=== PATIENT | female | born 1955 | race Caucasian/White ===

== ENCOUNTER 2017-11-25 12:09 | Inpatient (IN) | payer OTHER ==
[~2017-11-25] VITALS: Ht 157.5 cm; Wt 89.8 kg
[2017-11-25] MEDS ORDERED: CITALOPRAM HBR20 MG PO (13:28)
[2017-11-25] MEDS ORDERED: LIPITOR20 MG (13:28)
[2017-11-25] MEDS ORDERED: NORVASC5 MG PO (13:28)
[2017-11-25] MEDS ORDERED: GLIMEPIRIDE2 MG PO (13:29)
[2017-11-25] MEDS ORDERED: METFORMIN HCL850 MG PO (13:30)
[2017-11-25] MEDS ORDERED: VASOTEC10 M1 PO (13:31)
[2017-11-25] MEDS ORDERED: CLONIDINE HCL0.1 MG PO (13:32)
[2017-11-25] MEDS ORDERED: TOPROL XL50 MG PO (13:33)
[2017-11-25] MEDS ORDERED: ACARBOSE25 MG (13:33)
[2017-11-25] MEDS ORDERED: ZYRTEC10 M3 PO (13:34)
[2017-11-25] MEDS ORDERED: ASPIR 8181 MG PO (13:34)
[2017-11-25] MEDS ORDERED: PIPER-TAZ 3.375 GM 50 ML IV ONE (13:45)
[2017-11-25] MEDS ORDERED: VANCOMYCIN HCL 1 GM in SODIUM CHLORIDE 0.9% 250ML 250 ML IV SCH (13:45)
[2017-11-25] MEDS ORDERED: CEFTRIAXONE SOD 1 GM VIAL IM ONE (14:45)
[2017-11-25] MEDS ORDERED: ONDANSETRON HCL INJ 2 MG/ML VIAL IV PRN (15:15)
[2017-11-25] MEDS ORDERED: CEFEPIME HCL 2 GM VIAL IV SCH (15:15)
[2017-11-25] MEDS ORDERED: SODIUM CHLORIDE FLUSH 10 ML SYR INJ PRN (15:15)
--- OUTSIDE RECORDS SUMMARY | 2017-11-25 17:07 | XMS REPORT | Continuity of Care Document ---
Author Author [facility] Organization [facility] Address [address] [place] [address] Phone Unavailable Care Team Providers Care Corpsman Name Role Phone PAYAL TAYLOR MD PCP Insurance Providers Guarantor Aide Reid Address [address] [place] [address] Email [email or web address] Payer Miscellaneous Ppo Policy Number [id number] Subscriber's Name Aide Reid Relationship 18 Self / Same As Patient Effective Date 16 Advance Directives Directive Response Recorded Date/Time Does the patient have an advance directive? No 11/25/17 1:29pm If yes, is advance directive on file with [facility]? No 11/25/17 1:29pm If not on file with [facility] will patient provide a copy? No 11/25/17 1:29pm Do you have a Directive to Physician? No 11/25/17 1:29pm Do you have a Medical Power of Fluid Dynamicist? No 11/25/17 1:29pm Do you have an out of hospital Do Not Resuscitate Order? No 11/25/17 1:29pm Do you have any special needs we should be aware of? No 11/25/17 1:29pm Do you have a support person here with you today? Yes 11/25/17 1:29pm Did patient receive Notice of Privacy Practices? Yes 11/25/17 1:29pm Did patient receive patient rights and responsibilities? Yes 11/25/17 1:29pm Problems Medical Problem Onset Date Status Cellulitis Unknown Diabetes Unknown Medications Current Home Medications Medication Dose Units Route Directions Days Qty Instructions Start Date Acarbose 25 Mg Tablet Amlodipine Besylate (Norvasc) 5 Mg Tab 5 Mg Oral Daily 30 Tab Aspirin (Aspir 81) 81 Mg Tablet. Atorvastatin Calcium (Lipitor) 20 Mg Tablet 20 Mg Daily 30 Tab Cetirizine Hcl (Zyrtec) 10 Mg Capsule THERAPEUTICALLY SUBSTITUTED WITH LORATIDINE 10MG Citalopram Hydrobromide (Citalopram Hbr) 20 Mg Tablet 20 Mg Oral Daily Clonidine Hcl 0.1 Mg Tablet 1 Tab Oral Twice A Day 60 Tab Enalapril Maleate (Vasotec) 10 Mg Tablet Glimepiride 2 Mg Tablet 2 Mg Oral Metformin Hcl 850 Mg Tablet 800 Mg Oral Daily 30 Tab Metoprolol Succinate (Toprol Xl) 50 Mg Tab.er.24h 50 Mg Oral Daily 30 Tab Social History Smoking Status Start Date Stop Date Never Smoker Hospital Discharge Instructions No hospital discharge instruction information available. Plan of Care Discharge Date 11/25/17 4:51pm Disposition ADMITTED Condition at Discharge Stable Forms Provided Work/School Excuse Prescriptions See Medication Section Functional Status No functional status information available. Allergies, Adverse Reactions, Alerts No known allergies. Immunizations No immunization information available. Vital Signs Acute Vital Signs Vital Response Date/Time Temperature (Fahrenheit) 98.6 degrees F (97.6 - 99.5) 11/25/2017 4:48pm Pulse Pulse Rate (adult) 82 bpm (60 - 90) 11/25/2017 4:48pm Respiratory Rate 16 bpm (12 - 24) 11/25/2017 4:48pm Blood Pressure 141/65 mm Hg 11/25/2017 4:48pm Height 5 ft 2 in 11/25/2017 12:29pm Weight 197 lb 11/25/2017 12:29pm Body Mass Index 36.0 kg/m^2 11/25/2017 12:29pm Results No relevant diagnostic test, laboratory data and/or discharge summary information available. Procedures No procedure information available. Encounters Encounter Location Arrival/Admit Date Discharge/Depart Date Attending Provider Departed Emergency Room [facility] 11/25/17 12:09pm 11/25 4:51pm SHELLY SALCIDO MD
[2017-11-25 17:08] VITALS: BP 173/79
[2017-11-25] MEDS ORDERED: DEXTROSE 50% SYRINGE 50 ML IV PRN (17:30)
[2017-11-25] MEDS ORDERED: LORATADINE 10 MG TAB PO PRN (18:15)
[2017-11-25 18:18] VITALS: BP 173/79
[2017-11-25] MEDS ORDERED: PNEUMOCOCCAL VACCINE POLYVALENT 23 MCG/0.5 ML VIAL IM ONE (18:30)
[2017-11-25] MEDS: ENALAPRIL MALEATE 10 MG TAB PO SCH (18:48)
[2017-11-25] MEDS: CLONIDINE HCL 0.1 MG TAB PO SCH (18:48)
[2017-11-25 20:00] VITALS: BP 159/66
[2017-11-25 21:00] VITALS: BP 159/66
[2017-11-25] MEDS: CITALOPRAM HYDROBROMIDE 20 MG TAB PO SCH (21:24)
[2017-11-25] MEDS: ATORVASTATIN 20 MG TAB PO SCH (21:24)
[2017-11-25] MEDS: INSULIN LISPRO 100 UNIT/1 ML 3ML VIAL SQ SCH (21:29)
[2017-11-25] MEDS: HYDROCODONE/APAP 5MG-325MG TAB PO PRN (22:22)
[2017-11-26] VITALS: BP 163/79
[2017-11-26] MEDS ORDERED: VANCOMYCIN HCL 1 GM in SODIUM CHLORIDE 0.9% 250ML 250 ML IV SCH (01:54)
[2017-11-26] MEDS ORDERED: VANCOMYCIN 1GM/NS 250 ML 250 ML ONE (02:07)
[2017-11-26] MEDS: HYDROCODONE/APAP 5MG-325MG TAB PO PRN ×4 (02:28→20:30)
[2017-11-26 04:00] VITALS: BP 170/78
[2017-11-26 06:50] LABS: BASOPHILS % 0.2 % (0.0-1.0); EOSINOPHILS # (AUTO) 0.1 (0.0-0.4); EOSINOPHILS % 1.1 % (0.0-6.0); HEMATOCRIT 36.6 % (34.2-44.1); HEMOGLOBIN 11.9 g/dL (12.0-16.0); LYMPHOCYTES # (AUTO) 1.5 (1.0-3.2); LYMPHOCYTES % 18.6 % (18.0-39.1); MEAN CORPUSCULAR HEMOGLOBIN 28.6 pg (28-32); MEAN CORPUSCULAR HGB CONC 32.5 g/dL (31-35); MONOCYTES # (AUTO) 0.6 (0.2-0.8); MONOCYTES % 7.2 % (4.4-11.3); NEUTROPHILS # (AUTO) 5.9 (2.1-6.9); NEUTROPHILS % 72.5 % (38.7-80.0); PLATELET COUNT 193 x10e3/uL (140-360); RED BLOOD COUNT 4.16 x10e6/uL (3.6-5.1); RED CELL DISTRIBUTION WIDTH 13.7 % (11.7-14.4)
[2017-11-26 07:14] LABS: BLOOD UREA NITROGEN 8 mg/dL (7-26); BUN/CREATININE RATIO 12 (6-25); CALCIUM 9.8 mg/dL (8.4-10.2); CARBON DIOXIDE 26 mmol/L (22-29); CHLORIDE 100 mmol/L (98-107); CREATININE, SERUM 0.67 mg/dL (0.57-1.11); EST GLOMERULAR FILTRATION RATE > 60 ML/MIN (60-); GLUCOSE 95 mg/dL (74-118); SODIUM 135 mmol/L (136-145)
[2017-11-26 07:50] VITALS: BP 184/86
[2017-11-26 08:10] VITALS: BP 184/86
[2017-11-26] MEDS: ENALAPRIL MALEATE 10 MG TAB PO SCH ×2 (08:10→17:46)
[2017-11-26] MEDS: GLIMEPIRIDE 2 MG TAB PO SCH ×2 (08:10→17:46)
[2017-11-26] MEDS: ASPIRIN 81 MG CHEW TAB PO SCH (08:10)
[2017-11-26] MEDS: METOPROLOL SUCCINATE 50 MG TAB XL PO SCH (08:10)
[2017-11-26] MEDS: CEFEPIME HCL 2 GM VIAL IV SCH ×2 (08:10→09:00)
[2017-11-26] MEDS: AMLODIPINE BESYLATE 5 MG TAB PO SCH (08:10)
[2017-11-26] MEDS: INSULIN LISPRO 100 UNIT/1 ML 3ML VIAL SQ SCH ×4 (08:10→21:00)
[2017-11-26] MEDS: CLONIDINE HCL 0.1 MG TAB PO SCH ×2 (08:10→17:46)
[2017-11-26] MEDS ORDERED: CEFEPIME HCL 2 GM VIAL IV SCH (09:00)
[2017-11-26] MEDS ORDERED: ENALAPRIL MALEATE 10 MG TAB PO SCH (09:00)
[2017-11-26] MEDS ORDERED: CLONIDINE HCL 0.1 MG TAB PO SCH (09:00)
[2017-11-26] MEDS ORDERED: CLONIDINE HCL 0.1 MG TAB PO PRN (11:00)
--- NOTE | 2017-11-26 13:02 | History and Physical ---
CHIEF COMPLAINT: "I think my foot is infected." HISTORY OF PRESENT ILLNESS: This is a 61-year-old white woman who presents to [facility] Emergency Room with a 1-week history of worsening right foot redness and pain after a traumatic injury. Patient states she inadvertently pierced her right ankle with a screwdriver on November 17, 2017. Patient went to a local urgent care and was started on oral clindamycin and Bactrim, but unfortunately the medial aspect of her right foot only worsened in regards to pain, swelling, and redness. In the emergency room, patient was found to have a white blood cell count of 8100 with 72% segmented neutrophils. Patient underwent a CT of the right foot/ankle with intravenous contrast in the emergency room that revealed findings consistent with cellulitis, but no drainable abscess was identified. Patient was admitted for further evaluation and treatment. When patient initially presented to emergency room, her white blood cell count was 9700 with 80% segmented neutrophils. REVIEW OF SYSTEMS: GENERAL: No fever or chills. Weight is stable. HEENT: No headaches. No visual changes. CARDIOVASCULAR/RESPIRATORY: No chest pain, no shortness of breath, no cough. GI: No nausea or constipation. : No UTI or overactive bladder symptoms. NEUROMUSCULAR: Complains of worsening pain, redness, and swelling of the right ankle/foot over the last week. ALLERGIES: NO KNOWN DRUG ALLERGIES. HOME MEDICATIONS 1. Citalopram 20 mg daily. 2. Atorvastatin 10 mg q.h.s. 3. Amlodipine 10 mg a day. 4. Glimepiride 4 mg b.i.d. 5. Metformin 800 mg t.i.d. 6. Lisinopril 20 mg daily. 7. Clonidine 0.1 mg daily. 8. Metoprolol succinate 50 mg daily. 9. Aspirin 81 mg daily. 10. Zyrtec 10 mg once daily as needed for allergies. PAST MEDICAL HISTORY 1. Hypertensive heart disease. 2. Stage 1 chronic kidney disease with microalbuminuria. 3. Type 2 diabetes mellitus. 4. Obesity (calculated body mass 36). 5. Hyperlipidemia. 6. Depression. FAMILY HISTORY: Mother of lung cancer, who was a heavy smoker. No family history of diabetes mellitus or hypertension. PAST SURGICAL HISTORY 1. Total abdominal hysterectomy with bilateral salpingo-oophorectomy. 2. Gastroplasty in 1977. 3. Laparoscopic cholecystectomy. SOCIAL HISTORY: This woman is , lives with her . 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 No history of tobacco or alcohol use. PHYSICAL EXAMINATION: GENERAL: She is awake, alert, in no distress, very pleasant, comes in with her adult son, who is at bedside. VITAL SIGNS: Height 5 feet 2 inches, weight 198 pounds, calculated body mass 36. Blood pressure 184/86, pulse 88, respiratory rate 18, temperature 96.6, oxygen saturation is 97% on room air. INTEGUMENT: Skin is warm and dry. No pallor, jaundice, or diaphoresis. HEENT: Anicteric sclerae. Moist mucous membranes. NECK: Supple. CARDIOVASCULAR: Tachycardic rate and rhythm. LUNGS: No rales, no rhonchi, no wheezes. ABDOMEN: Benign. EXTREMITIES: Patient has a well demarcated area of erythema on medial aspect of the right foot near the medial malleolus. This area is erythematous, warm, and tender to touch, but the area seems to be receding. The patient notes less swelling in the dorsal aspect of right foot. DIAGNOSES 1. Right foot/ankle cellulitis. 2. Type 2 diabetes mellitus. 3. Stage 1 chronic kidney disease with microalbuminuria. 4. Hypertensive heart disease. 5. Obesity, calculated body mass 36. PLAN 1. Continue intravenous antibiotics. 2. Blood pressure control. 3. Blood glucose control. 4. We will follow patient's cellulitis clinically. 5. Tentative discharge for Tuesday, November 28, 2017. I spent 40 minutes in the care of this patient. Job#: [id number] RAYA
[2017-11-26] MEDS: VANCOMYCIN 1GM/NS 250 ML 250 ML IV SCH (14:43)
[2017-11-26 20:17] VITALS: BP 165/80
[2017-11-26] MEDS: CITALOPRAM HYDROBROMIDE 20 MG TAB PO SCH (20:59)
[2017-11-26] MEDS: ATORVASTATIN 20 MG TAB PO SCH (20:59)
[2017-11-26 22:00] VITALS: BP 165/80
[2017-11-27] VITALS (8 sets, daily range): BP systolic 151–194; BP diastolic 60–84
[2017-11-27] MEDS: VANCOMYCIN 1GM/NS 250 ML 250 ML IV SCH ×2 (03:03→15:47)
[2017-11-27] MEDS: HYDROCODONE/APAP 5MG-325MG TAB PO PRN ×3 (03:11→22:05)
[2017-11-27 06:19] LABS: BASOPHILS % 0.2 % (0.0-1.0); EOSINOPHILS # (AUTO) 0.1 (0.0-0.4); EOSINOPHILS % 1.7 % (0.0-6.0); HEMATOCRIT 39.3 % (34.2-44.1); LYMPHOCYTES # (AUTO) 1.5 (1.0-3.2); LYMPHOCYTES % 18.3 % (18.0-39.1); MEAN CORPUSCULAR HEMOGLOBIN 29.1 pg (28-32); MEAN CORPUSCULAR HGB CONC 33.1 g/dL (31-35); MEAN CORPUSCULAR VOLUME 87.9 fL (81-99); MONOCYTES # (AUTO) 0.5 (0.2-0.8); MONOCYTES % 5.8 % (4.4-11.3); NEUTROPHILS # (AUTO) 6.1 (2.1-6.9); NEUTROPHILS % 73.8 % (38.7-80.0); PLATELET COUNT 198 x10e3/uL (140-360); RED BLOOD COUNT 4.47 x10e6/uL (3.6-5.1); RED CELL DISTRIBUTION WIDTH 13.5 % (11.7-14.4)
[2017-11-27 06:40] LABS: ALANINE AMINOTRANSFERASE 23 IU/L (0-55); ALBUMIN 3.2 g/dL (3.5-5.0); ALBUMIN/GLOBULIN RATIO 0.8 (0.8-2.0); ALKALINE PHOSPHATASE 99 IU/L (40-150); ANION GAP 13.9 mmol/L (8-16); BLOOD UREA NITROGEN 9 mg/dL (7-26); BUN/CREATININE RATIO 13 (6-25); CALCIUM 9.6 mg/dL (8.4-10.2); CARBON DIOXIDE 26 mmol/L (22-29); CHLORIDE 102 mmol/L (98-107); CREATININE, SERUM 0.67 mg/dL (0.57-1.11); EST GLOMERULAR FILTRATION RATE > 60 ML/MIN (60-); GLUCOSE 131 mg/dL (74-118); POTASSIUM 3.9 mmol/L (3.5-5.1); SODIUM 138 mmol/L (136-145)
[2017-11-27] MEDS: CLONIDINE HCL 0.1 MG TAB PO SCH ×2 (08:12→17:07)
[2017-11-27] MEDS: INSULIN LISPRO 100 UNIT/1 ML 3ML VIAL SQ SCH ×4 (08:12→20:55)
[2017-11-27] MEDS: METOPROLOL SUCCINATE 50 MG TAB XL PO SCH (08:12)
[2017-11-27] MEDS: CEFEPIME HCL 2 GM VIAL IV SCH ×2 (08:12→20:54)
[2017-11-27] MEDS: ENALAPRIL MALEATE 10 MG TAB PO SCH ×2 (08:12→17:07)
[2017-11-27] MEDS: ASPIRIN 81 MG CHEW TAB PO SCH (08:12)
[2017-11-27] MEDS: AMLODIPINE BESYLATE 5 MG TAB PO SCH (08:12)
[2017-11-27] MEDS: GLIMEPIRIDE 2 MG TAB PO SCH ×2 (08:12→17:07)
[2017-11-27] MEDS: ATORVASTATIN 20 MG TAB PO SCH (20:54)
[2017-11-27] MEDS: CITALOPRAM HYDROBROMIDE 20 MG TAB PO SCH (20:54)
[2017-11-28 00:05] VITALS: BP 159/75
[2017-11-28] MEDS: VANCOMYCIN 1GM/NS 250 ML 250 ML IV SCH (02:29)
[2017-11-28 05:43] VITALS: BP 180/80
[2017-11-28 06:43] LABS: BASOPHILS % 0.4 % (0.0-1.0); EOSINOPHILS # (AUTO) 0.2 (0.0-0.4); EOSINOPHILS % 2.1 % (0.0-6.0); HEMATOCRIT 39.4 % (34.2-44.1); HEMOGLOBIN 12.9 g/dL (12.0-16.0); LYMPHOCYTES # (AUTO) 1.6 (1.0-3.2); LYMPHOCYTES % 21.2 % (18.0-39.1); MEAN CORPUSCULAR HGB CONC 32.7 g/dL (31-35); MEAN CORPUSCULAR VOLUME 88.5 fL (81-99); MONOCYTES # (AUTO) 0.5 (0.2-0.8); NEUTROPHILS # (AUTO) 5.3 (2.1-6.9); NEUTROPHILS % 68.9 % (38.7-80.0); PLATELET COUNT 209 x10e3/uL (140-360); RED BLOOD COUNT 4.45 x10e6/uL (3.6-5.1); RED CELL DISTRIBUTION WIDTH 13.2 % (11.7-14.4)
[2017-11-28 07:15] LABS: ANION GAP 12.8 mmol/L (8-16); BLOOD UREA NITROGEN 11 mg/dL (7-26); BUN/CREATININE RATIO 17 (6-25); CALCIUM 9.6 mg/dL (8.4-10.2); CARBON DIOXIDE 26 mmol/L (22-29); CHLORIDE 102 mmol/L (98-107); CREATININE, SERUM 0.66 mg/dL (0.57-1.11); EST GLOMERULAR FILTRATION RATE > 60 ML/MIN (60-); GLUCOSE 131 mg/dL (74-118); POTASSIUM 3.8 mmol/L (3.5-5.1); SODIUM 137 mmol/L (136-145)
--- NOTE | 2017-11-28 07:55 | Diagnostic Imaging Report ---
PROCEDURE:X-RAY RIGHT ANKLE, COMPLETE INDICATION:Infection, ankle pain COMPARISON:None. FINDINGS: No acute, displaced fracture or dislocation. The tibial plafond and talar dome are intact. The ankle mortise is maintained. No cortical erosive or destructive change. Minimal degenerative plantar and posterior calcaneal spur. Soft tissues are otherwise unremarkable. CONCLUSION: No acute osseous abnormality. Dictated by: Garret Langford M.D. on 11/28/2017 at 7:55 Electronically approved by: Garret Langford M.D. on 11/28/2017 at 7:55
[2017-11-28 08:00] VITALS: BP 178/85
[2017-11-28] MEDS: INSULIN LISPRO 100 UNIT/1 ML 3ML VIAL SQ SCH (08:00)
[2017-11-28] MEDS: AMLODIPINE BESYLATE 5 MG TAB PO SCH (08:32)
[2017-11-28] MEDS: ASPIRIN 81 MG CHEW TAB PO SCH (08:32)
[2017-11-28] MEDS: GLIMEPIRIDE 2 MG TAB PO SCH (08:32)
[2017-11-28] MEDS: ENALAPRIL MALEATE 10 MG TAB PO SCH (08:32)
[2017-11-28] MEDS: CEFEPIME HCL 2 GM VIAL IV SCH (08:32)
[2017-11-28] MEDS: CLONIDINE HCL 0.1 MG TAB PO SCH (08:32)
[2017-11-28] MEDS: METOPROLOL SUCCINATE 50 MG TAB XL PO SCH (08:32)
[2017-11-28 09:25] VITALS: BP 178/85
[2017-11-28] MEDS ORDERED: CLINDAMYCIN HC150 MG (10:22)
[2017-11-28] MEDS ORDERED: BACTRIM DS TAB1 EACH PO (10:22)
--- NOTE | 2017-11-30 09:33 | Discharge Summary ---
ADMIT DIAGNOSES 1. Right foot/ankle cellulitis. 2. Type 2 diabetes mellitus. 3. Stage 1 chronic kidney disease with microalbuminuria. 4. Hypertensive heart disease. 5. Obesity (calculated body mass index 36). DISCHARGE DIAGNOSES 1. Right foot/ankle cellulitis, resolving. 2. Type 2 diabetes mellitus. 3. Stage 1 chronic kidney disease with microalbuminuria. 4. Hypertensive heart disease. 5. Obesity (calculated body mass index 36). HOSPITAL COURSE: This is a 61-year-old white woman who was initially admitted to [facility] with the diagnosis of right foot/ankle cellulitis. The patient improved clinically during this hospitalization with intravenous antibiotics, namely vancomycin and cefepime. She was found to have an elevated C-reactive protein level of 19.7 and a sedimentation rate of 50. The patient underwent x-ray of the right foot during this hospitalization, which did not reveal any cortical erosive or destructive changes consistent with osteomyelitis. The patient did undergo a CT of the ankle prior to admission that did not reveal any evidence of abscess. The patient's hospitalization was unremarkable. The patient's condition on discharge was stable. DISCHARGE MEDICATIONS 1. Clindamycin 300 mg t.i.d. for 6 more days. 2. Bactrim double strength 1 b.i.d. for 6 more days. 3. Citalopram 20 mg daily. 4. Atorvastatin 10 mg at bedtime. 5. Amlodipine 10 mg daily. 6. Glimepiride 4 mg b.i.d. 7. Metformin 850 mg t.i.d. 8. Lisinopril 20 mg daily. 9. Clonidine 0.1 mg b.i.d. 10. Metoprolol succinate 50 mg daily. 11. Aspirin 81 mg daily. 12. Zyrtec 10 mg daily. FOLLOWUP INSTRUCTIONS: The patient was instructed to follow up with her primary care physician, namely myself, Dr. Pedro Taylor, within 1 week. PEDRO TAYLOR MD Job#: [id number] [place]
== END 2017-11-28 11:00 | disposition home or self-care (01) | DRG 603 ==
LOC: FSED 12:09 → CMPBEDREQ 16:10 → FSED 16:51 → MED/SURG2 17:04
PROVIDERS: ADMIT Internal Medicine; ATTEND Internal Medicine
DX: L03.115 Cellulitis of right lower limb (principal); E11.22 Type 2 diabetes mellitus with diabetic chronic kidney disease; I13.10 Hypertensive heart and chronic kidney disease without heart failure, with stage 1 through stage 4 chronic kidney disease, or unspecified chronic kidney disease; N18.1 Chronic kidney disease, stage 1; E66.9 Obesity, unspecified; Z68.36 Body mass index [BMI] 36.0-36.9, adult; R80.9 Proteinuria, unspecified; Z79.4 Long term (current) use of insulin
CPT/HCPCS: 36415; 80048; 80053; 80202; 82948; 85025; 85651; 86140; 90732; 99284; J0692; J0696; J2405; J2543; J3370; J7050

== ENCOUNTER 2020-11-08 22:20 | Inpatient (IN) | payer MEDICARE, OTHER ==
[~2020-11-08] VITALS: Ht 157.5 cm; Wt 89.8 kg
[~2020-11-08 22:20] MED LIST: ACARBOSE25 MG; ASPIR 8181 MG PO; BACTRIM DS TAB1 EACH PO; CITALOPRAM HBR20 MG PO; CLINDAMYCIN HC150 MG; CLONIDINE HCL0.1 MG PO; GLIMEPIRIDE2 MG PO; LIPITOR20 MG; METFORMIN HCL850 MG PO; NORVASC5 MG PO; TOPROL XL50 MG PO; VASOTEC10 M1 PO; ZYRTEC10 M3 PO
[2020-11-08] MEDS ORDERED: DEXAMETHASONE SOD PHOS 10 MG/1 ML VIAL IV ONE (22:30)
[2020-11-08] MEDS ORDERED: CEFOXITIN 1GM/0.9% NS 50ML 50 ML IV ONE (22:30)
[2020-11-08 22:42] LABS: BASOPHILS # (AUTO) 0.2 (0.0-0.1); BASOPHILS % 0.6 % (0.0-1.0); EOSINOPHILS # (AUTO) 0.3 (0.0-0.4); EOSINOPHILS % 1.2 % (0.0-6.0); HEMATOCRIT 47.3 % (34.2-44.1); HEMOGLOBIN 15.2 g/dL (12.0-16.0); LYMPHOCYTES # (AUTO) 9.4 (1.0-3.2); LYMPHOCYTES % 34.4 % (18.0-39.1); MEAN CORPUSCULAR HEMOGLOBIN 29.2 pg (28-32); MEAN CORPUSCULAR HGB CONC 32.1 g/dL (31-35); MONOCYTES % 7.4 % (4.4-11.3); NEUTROPHILS # (AUTO) 15.2 (2.1-6.9); NEUTROPHILS % 55.6 % (38.7-80.0); PLATELET COUNT 354 x10e3/uL (140-360); RED CELL DISTRIBUTION WIDTH 13.9 % (11.7-14.4)
[2020-11-08 22:56] LABS: ALANINE AMINOTRANSFERASE 25 IU/L (0-55); ALBUMIN 4.1 g/dL (3.5-5.0); ALBUMIN/GLOBULIN RATIO 0.8 (0.8-2.0); ALKALINE PHOSPHATASE 109 IU/L (40-150); ANION GAP 22.9 mmol/L (8-16); BLOOD UREA NITROGEN 23 mg/dL (7-26); BUN/CREATININE RATIO 26 (6-25); CARBON DIOXIDE 19 mmol/L (22-29); CHLORIDE 102 mmol/L (98-107); CREATINE KINASE 201 IU/L (29-168); CREATININE, SERUM 0.89 mg/dL (0.57-1.11); EST GLOMERULAR FILTRATION RATE > 60 ML/MIN (60-); GLUCOSE 187 mg/dL (74-118); POTASSIUM 3.9 mmol/L (3.5-5.1); SODIUM 140 mmol/L (136-145)
[2020-11-08] MEDS ORDERED: SODIUM CHLORIDE 0.9% 1000ML 1,000 ML IV STA ×3 (23:04)
[2020-11-08] MEDS ORDERED: VANCOMYCIN 1GM/NS 250 ML 250 ML IV STA (23:05)
[2020-11-08] MEDS ORDERED: CEFEPIME HCL 1GM 1 GM in SODIUM CHLORIDE 0.9% 50ML 50 ML IV STA (23:28)
[2020-11-08] MEDS ORDERED: FUROSEMIDE INJ 10 MG/ML 4 ML VIAL IV ONE (23:30)
[2020-11-08 23:54] LABS: INR 0.95; PROTHROMBIN TIME 13.2 seconds (11.9-14.5)
[2020-11-09 00:52] LABS: CREATINE KINASE MB 3.7 ng/mL (0-5.0)
[2020-11-09] MEDS ORDERED: ASPIRIN 81 MG CHEW TAB PO ONE (01:30)
[2020-11-09 03:43] LABS: ABG HCO3 23 mmol/L (22-26); ABG PCO2 51 mmHg (35-45); ABG PH 7.27 (7.35-7.45); ABG PO2 66 mmHg (80-105); ABG TCO2 25
[2020-11-09 04:05] LABS: CREATINE KINASE MB 4.8 ng/mL (0-5.0)
[2020-11-09] MEDS ORDERED: CEFEPIME 2 GM/NS 0.9% 100 ML 100 ML IV SCH (08:30)
[2020-11-09] MEDS ORDERED: LORATADINE 10 MG TAB PO PRN (08:30)
[2020-11-09] MEDS ORDERED: FUROSEMIDE INJ 10 MG/ML 4 ML VIAL IV ONE (08:30)
[2020-11-09 08:58] LABS: BASOPHILS # (AUTO) 0.1 (0.0-0.1); BASOPHILS % 0.3 % (0.0-1.0); HEMATOCRIT 42.5 % (34.2-44.1); HEMOGLOBIN 14.2 g/dL (12.0-16.0); LYMPHOCYTES # (AUTO) 0.9 (1.0-3.2); LYMPHOCYTES % 4.5 % (18.0-39.1); MEAN CORPUSCULAR HEMOGLOBIN 29.3 pg (28-32); MEAN CORPUSCULAR HGB CONC 33.4 g/dL (31-35); MEAN CORPUSCULAR VOLUME 87.6 fL (81-99); MONOCYTES # (AUTO) 0.3 (0.2-0.8); MONOCYTES % 1.7 % (4.4-11.3); NEUTROPHILS # (AUTO) 17.9 (2.1-6.9); NEUTROPHILS % 92.7 % (38.7-80.0); PLATELET COUNT 260 x10e3/uL (140-360); RED BLOOD COUNT 4.85 x10e6/uL (3.6-5.1); RED CELL DISTRIBUTION WIDTH 13.8 % (11.7-14.4)
[2020-11-09 09:22] LABS: ALANINE AMINOTRANSFERASE 41 IU/L (0-55); ALBUMIN 3.7 g/dL (3.5-5.0); ALBUMIN/GLOBULIN RATIO 0.8 (0.8-2.0); ALKALINE PHOSPHATASE 91 IU/L (40-150); BLOOD UREA NITROGEN 20 mg/dL (7-26); BUN/CREATININE RATIO 25 (6-25); CALCIUM 9.1 mg/dL (8.4-10.2); CARBON DIOXIDE 24 mmol/L (22-29); CHLORIDE 97 mmol/L (98-107); EST GLOMERULAR FILTRATION RATE > 60 ML/MIN (60-); GLUCOSE 345 mg/dL (74-118); SODIUM 135 mmol/L (136-145)
[2020-11-09] MEDS: VANCOMYCIN 1GM/NS 250 ML 250 ML IV SCH ×2 (09:30→21:15)
[2020-11-09 10:41] LABS: CREATINE KINASE MB 4.8 ng/mL (0-5.0)
[2020-11-09] MEDS: CLONIDINE HCL 0.1 MG TAB PO SCH ×2 (12:44→17:19)
[2020-11-09] MEDS: ENALAPRIL MALEATE 10 MG TAB PO SCH ×2 (12:44→17:19)
[2020-11-09] MEDS: AMLODIPINE BESYLATE 10 MG TAB PO SCH (12:44)
[2020-11-09] MEDS: ASPIRIN 81 MG CHEW TAB PO SCH (12:44)
[2020-11-09] MEDS: AZITHROMYCIN 500MG/NS 250 ML 250 ML IV SCH (12:44)
[2020-11-09] MEDS: METOPROLOL SUCCINATE 50 MG TAB XL PO SCH (12:44)
[2020-11-09] MEDS ORDERED: SODIUM CHLORIDE 0.9% 250ML 250 ML ONE (14:55)
[2020-11-09 15:00] VITALS: BP 126/71
[2020-11-09 15:16] VITALS: BP 126/71
[2020-11-09] MEDS ORDERED: CEFTRIAXONE SOD 2 GM/100 ML ML IV SCH (15:45)
[2020-11-09] MEDS ORDERED: CEFTRIAXONE SOD 2 GM 100 ML IV SCH (16:00)
[2020-11-09] MEDS ORDERED: DEXTROSE 50% SYRINGE 50 ML IV PRN (16:15)
[2020-11-09] MEDS: INSULIN REGULAR, HUMAN 100 UNIT/1 ML 3ML VIAL SQ SCH ×2 (16:30→21:01)
[2020-11-09 20:00] VITALS: BP 136/72
[2020-11-09] MEDS: CITALOPRAM HYDROBROMIDE 20 MG TAB PO SCH ×2 (20:37→20:45)
[2020-11-09] MEDS: ATORVASTATIN 10 MG TAB PO SCH (20:37)
[2020-11-09 21:00] VITALS: BP 136/72
[2020-11-09] MEDS ORDERED: SODIUM CHLORIDE 0.9% 50ML 50 ML ONE (22:50)
[2020-11-09] MEDS ORDERED: IOPAMIDOL 370 MG/ML 200 ML INFUS..BTL INJ ONE (22:50)
[2020-11-10] VITALS (8 sets, daily range): BP systolic 133–153; BP diastolic 76–83
[2020-11-10 05:39] LABS: BASOPHILS % 0.1 % (0.0-1.0); EOSINOPHILS % 0.1 % (0.0-6.0); HEMATOCRIT 37.6 % (34.2-44.1); HEMOGLOBIN 12.3 g/dL (12.0-16.0); LYMPHOCYTES # (AUTO) 1.4 (1.0-3.2); LYMPHOCYTES % 10.5 % (18.0-39.1); MEAN CORPUSCULAR HEMOGLOBIN 28.9 pg (28-32); MEAN CORPUSCULAR HGB CONC 32.7 g/dL (31-35); MEAN CORPUSCULAR VOLUME 88.5 fL (81-99); MONOCYTES % 7.8 % (4.4-11.3); NEUTROPHILS # (AUTO) 10.5 (2.1-6.9); PLATELET COUNT 204 x10e3/uL (140-360); RED BLOOD COUNT 4.25 x10e6/uL (3.6-5.1); RED CELL DISTRIBUTION WIDTH 14.2 % (11.7-14.4)
[2020-11-10 06:21] LABS: ALANINE AMINOTRANSFERASE 34 IU/L (0-55); ALBUMIN 3.4 g/dL (3.5-5.0); ALBUMIN/GLOBULIN RATIO 0.9 (0.8-2.0); ALKALINE PHOSPHATASE 69 IU/L (40-150); ANION GAP 14.8 mmol/L (8-16); BLOOD UREA NITROGEN 23 mg/dL (7-26); BUN/CREATININE RATIO 32 (6-25); CALCIUM 9.1 mg/dL (8.4-10.2); CARBON DIOXIDE 27 mmol/L (22-29); CHLORIDE 100 mmol/L (98-107); CREATININE, SERUM 0.71 mg/dL (0.57-1.11); EST GLOMERULAR FILTRATION RATE > 60 ML/MIN (60-); GLUCOSE 214 mg/dL (74-118); POTASSIUM 3.8 mmol/L (3.5-5.1); SODIUM 138 mmol/L (136-145)
[2020-11-10 06:53] LABS: CREATINE KINASE MB 5.4 ng/mL (0-5.0)
[2020-11-10] MEDS ORDERED: FUROSEMIDE INJ 10 MG/ML 4 ML VIAL IV ONE (07:00)
[2020-11-10] MEDS ORDERED: IPRATROPIUM BROMIDE 0.02% 2.5 ML NEB NEB SCH (07:30)
[2020-11-10] MEDS ORDERED: LEVALBUTEROL HCL SOLN NEBU 0.63 MG/3 ML NEB INH SCH (07:30)
[2020-11-10] MEDS: INSULIN REGULAR, HUMAN 100 UNIT/1 ML 3ML VIAL SQ SCH ×4 (08:00→20:17)
[2020-11-10] MEDS: ASPIRIN 81 MG CHEW TAB PO SCH (09:00)
[2020-11-10] MEDS: ENALAPRIL MALEATE 10 MG TAB PO SCH ×2 (09:00→16:51)
[2020-11-10] MEDS: VANCOMYCIN 1GM/NS 250 ML 250 ML IV SCH ×2 (09:00→20:17)
[2020-11-10] MEDS: GLIMEPIRIDE 2 MG TAB PO SCH ×2 (09:00→16:51)
[2020-11-10] MEDS: METOPROLOL SUCCINATE 50 MG TAB XL PO SCH (09:00)
[2020-11-10] MEDS: AMLODIPINE BESYLATE 10 MG TAB PO SCH (09:00)
[2020-11-10] MEDS: CLONIDINE HCL 0.1 MG TAB PO SCH ×2 (09:00→16:51)
[2020-11-10] MEDS: AZITHROMYCIN 500MG/NS 250 ML 250 ML IV SCH (11:35)
[2020-11-10 15:31] LABS: CREATINE KINASE MB 4.4 ng/mL (0-5.0)
[2020-11-10] MEDS: CEFEPIME HCL 1GM 1 GM in SODIUM CHLORIDE 0.9% 50ML 50 ML IV SCH (16:51)
[2020-11-10] MEDS: ATORVASTATIN 10 MG TAB PO SCH (20:17)
[2020-11-10] MEDS: CITALOPRAM HYDROBROMIDE 20 MG TAB PO SCH (20:17)
[2020-11-10] MEDS: ZOLPIDEM TARTRATE 5 MG TAB PO PRN (22:45)
[2020-11-11] VITALS (7 sets, daily range): BP systolic 128–148; BP diastolic 76–87
[2020-11-11 05:09] LABS: BASOPHILS # (AUTO) 0.1 (0.0-0.1); BASOPHILS % 0.3 % (0.0-1.0); EOSINOPHILS % 0.2 % (0.0-6.0); HEMATOCRIT 39.5 % (34.2-44.1); HEMOGLOBIN 13.1 g/dL (12.0-16.0); LYMPHOCYTES # (AUTO) 1.9 (1.0-3.2); LYMPHOCYTES % 11.7 % (18.0-39.1); MEAN CORPUSCULAR HEMOGLOBIN 29.6 pg (28-32); MEAN CORPUSCULAR HGB CONC 33.2 g/dL (31-35); MEAN CORPUSCULAR VOLUME 89.2 fL (81-99); MONOCYTES # (AUTO) 1.4 (0.2-0.8); MONOCYTES % 8.4 % (4.4-11.3); NEUTROPHILS # (AUTO) 12.9 (2.1-6.9); NEUTROPHILS % 78.9 % (38.7-80.0); PLATELET COUNT 230 x10e3/uL (140-360); RED BLOOD COUNT 4.43 x10e6/uL (3.6-5.1); RED CELL DISTRIBUTION WIDTH 13.9 % (11.7-14.4)
[2020-11-11 05:21] LABS: ANION GAP 13.3 mmol/L (8-16); BLOOD UREA NITROGEN 17 mg/dL (7-26); BUN/CREATININE RATIO 25 (6-25); CALCIUM 8.8 mg/dL (8.4-10.2); CARBON DIOXIDE 25 mmol/L (22-29); CHLORIDE 99 mmol/L (98-107); CREATININE, SERUM 0.68 mg/dL (0.57-1.11); EST GLOMERULAR FILTRATION RATE > 60 ML/MIN (60-); GLUCOSE 181 mg/dL (74-118); POTASSIUM 3.3 mmol/L (3.5-5.1); SODIUM 134 mmol/L (136-145)
[2020-11-11] MEDS: CEFEPIME HCL 1GM 1 GM in SODIUM CHLORIDE 0.9% 50ML 50 ML IV SCH ×2 (05:23→17:15)
[2020-11-11 06:04] LABS: CREATINE KINASE MB 2.4 ng/mL (0-5.0)
[2020-11-11] MEDS ORDERED: CLONIDINE HCL 0.1 MG TAB PO PRN (07:00)
[2020-11-11] MEDS ORDERED: AZITHROMYCIN 500MG/NS 250 ML 250 ML IV SCH (07:45)
[2020-11-11] MEDS ORDERED: POTASSIUM CHLORIDE 10MEQ EA PO ONE ×2 (08:00→09:00)
[2020-11-11] MEDS: ENALAPRIL MALEATE 10 MG TAB PO SCH ×2 (08:45→17:15)
[2020-11-11] MEDS: INSULIN REGULAR, HUMAN 100 UNIT/1 ML 3ML VIAL SQ SCH ×4 (08:45→21:00)
[2020-11-11] MEDS: AMLODIPINE BESYLATE 10 MG TAB PO SCH (09:45)
[2020-11-11] MEDS: METOPROLOL SUCCINATE 50 MG TAB XL PO SCH (09:45)
[2020-11-11] MEDS: VANCOMYCIN 1GM/NS 250 ML 250 ML IV SCH (09:45)
[2020-11-11] MEDS: FUROSEMIDE INJ 10 MG/ML 4 ML VIAL IV SCH ×2 (09:45→17:20)
[2020-11-11] MEDS: GLIMEPIRIDE 2 MG TAB PO SCH ×2 (09:45→17:15)
[2020-11-11] MEDS: ASPIRIN 81 MG CHEW TAB PO SCH (09:45)
[2020-11-11] MEDS: ATORVASTATIN 10 MG TAB PO SCH (20:02)
[2020-11-11] MEDS: CITALOPRAM HYDROBROMIDE 20 MG TAB PO SCH (20:02)
[2020-11-11] MEDS: ZOLPIDEM TARTRATE 5 MG TAB PO PRN (21:35)
[2020-11-12 01:15] VITALS: BP 158/83
[2020-11-12] MEDS: CEFEPIME HCL 1GM 1 GM in SODIUM CHLORIDE 0.9% 50ML 50 ML IV SCH (05:30)
[2020-11-12 06:06] VITALS: BP 154/76
[2020-11-12 06:10] LABS: BASOPHILS % 0.4 % (0.0-1.0); EOSINOPHILS # (AUTO) 0.1 (0.0-0.4); EOSINOPHILS % 0.7 % (0.0-6.0); HEMATOCRIT 41.5 % (34.2-44.1); HEMOGLOBIN 13.6 g/dL (12.0-16.0); LYMPHOCYTES # (AUTO) 1.8 (1.0-3.2); LYMPHOCYTES % 16.5 % (18.0-39.1); MEAN CORPUSCULAR HEMOGLOBIN 29.4 pg (28-32); MEAN CORPUSCULAR HGB CONC 32.8 g/dL (31-35); MEAN CORPUSCULAR VOLUME 89.8 fL (81-99); MONOCYTES # (AUTO) 0.9 (0.2-0.8); MONOCYTES % 8.3 % (4.4-11.3); NEUTROPHILS # (AUTO) 7.9 (2.1-6.9); NEUTROPHILS % 73.5 % (38.7-80.0); PLATELET COUNT 206 x10e3/uL (140-360); RED BLOOD COUNT 4.62 x10e6/uL (3.6-5.1); RED CELL DISTRIBUTION WIDTH 13.8 % (11.7-14.4)
[2020-11-12 06:33] LABS: ALANINE AMINOTRANSFERASE 113 IU/L (0-55); ALBUMIN 3.1 g/dL (3.5-5.0); ALBUMIN/GLOBULIN RATIO 0.7 (0.8-2.0); ALKALINE PHOSPHATASE 115 IU/L (40-150); ANION GAP 14.3 mmol/L (8-16); BLOOD UREA NITROGEN 17 mg/dL (7-26); BUN/CREATININE RATIO 24 (6-25); CARBON DIOXIDE 24 mmol/L (22-29); CHLORIDE 100 mmol/L (98-107); CREATININE, SERUM 0.71 mg/dL (0.57-1.11); EST GLOMERULAR FILTRATION RATE > 60 ML/MIN (60-); GLUCOSE 234 mg/dL (74-118); POTASSIUM 3.3 mmol/L (3.5-5.1); SODIUM 135 mmol/L (136-145)
[2020-11-12 08:08] VITALS: BP 153/84
[2020-11-12 08:56] VITALS: BP 153/84
[2020-11-12] MEDS: ASPIRIN 81 MG CHEW TAB PO SCH (09:27)
[2020-11-12] MEDS: GLIMEPIRIDE 2 MG TAB PO SCH (09:27)
[2020-11-12] MEDS: FUROSEMIDE INJ 10 MG/ML 4 ML VIAL IV SCH (09:27)
[2020-11-12] MEDS: AMLODIPINE BESYLATE 10 MG TAB PO SCH (09:28)
[2020-11-12] MEDS: METOPROLOL SUCCINATE 50 MG TAB XL PO SCH (09:29)
[2020-11-12] MEDS: ENALAPRIL MALEATE 10 MG TAB PO SCH (09:29)
[2020-11-12] MEDS: INSULIN REGULAR, HUMAN 100 UNIT/1 ML 3ML VIAL SQ SCH ×2 (09:38→12:12)
[2020-11-12] MEDS ORDERED: POTASSIUM CHLORIDE 10MEQ EA PO ONE ×2 (10:15→12:15)
[2020-11-12] MEDS ORDERED: LEVOFLOXACIN250 MG PO (10:59)
[2020-11-12] MEDS ORDERED: FUROSEMIDE40 MG PO (11:01)
[2020-11-12] MEDS ORDERED: CEFUROXIME500 MG (11:01)
== END 2020-11-12 12:30 | disposition home or self-care (01) | DRG 871 ==
LOC: ER 22:30 → ERHOLD 11-09 01:30 → MED/SURG2 11-09 14:38
PROVIDERS: ADMIT Internal Medicine; ATTEND Internal Medicine
DX: A41.9 Sepsis, unspecified organism (principal); R65.21 Severe sepsis with septic shock; J15.6 Pneumonia due to other Gram-negative bacteria; I50.33 Acute on chronic diastolic (congestive) heart failure; E11.9 Type 2 diabetes mellitus without complications; I11.0 Hypertensive heart disease with heart failure; I35.0 Nonrheumatic aortic (valve) stenosis; I27.20 Pulmonary hypertension, unspecified; Z20.822 Contact with and (suspected) exposure to COVID-19
CPT/HCPCS: 36415; 36600; 71045; 71260; 80048; 80053; 80202; 82550; 82553; 82805; 82948; 83605; 83880; 84484; 85025; 85379; 85610; 87040; 93005; 93306; 99284; J0456; J0692; J0696; J1100; J1817; J1940; J3370; J7050; Q9967; U0002

== ENCOUNTER → 2020-12-19 | Day surgery (SDC) | payer MEDICARE ==
[2020-12-15 14:15] LABS: BASOPHILS % 0.4 % (0.0-1.0); EOSINOPHILS # (AUTO) 0.1 (0.0-0.4); EOSINOPHILS % 1.1 % (0.0-6.0); HEMATOCRIT 41.1 % (34.2-44.1); HEMOGLOBIN 13.6 g/dL (12.0-16.0); LYMPHOCYTES # (AUTO) 1.9 (1.0-3.2); LYMPHOCYTES % 21.1 % (18.0-39.1); MEAN CORPUSCULAR HEMOGLOBIN 29.3 pg (28-32); MEAN CORPUSCULAR HGB CONC 33.1 g/dL (31-35); MEAN CORPUSCULAR VOLUME 88.6 fL (81-99); MONOCYTES # (AUTO) 0.6 (0.2-0.8); MONOCYTES % 6.4 % (4.4-11.3); NEUTROPHILS # (AUTO) 6.4 (2.1-6.9); NEUTROPHILS % 70.4 % (38.7-80.0); PLATELET COUNT 199 x10e3/uL (140-360); RED BLOOD COUNT 4.64 x10e6/uL (3.6-5.1)
[2020-12-15 14:25] LABS: INR 0.89; PROTHROMBIN TIME 12.6 seconds (11.9-14.5)
[2020-12-15 15:00] LABS: ALANINE AMINOTRANSFERASE 21 IU/L (0-55); ALBUMIN 3.8 g/dL (3.5-5.0); ALKALINE PHOSPHATASE 75 IU/L (40-150); ANION GAP 17.2 mmol/L (8-16); BLOOD UREA NITROGEN 18 mg/dL (7-26); BUN/CREATININE RATIO 22 (6-25); CALCIUM 9.4 mg/dL (8.4-10.2); CARBON DIOXIDE 25 mmol/L (22-29); CHLORIDE 99 mmol/L (98-107); CREATININE, SERUM 0.83 mg/dL (0.57-1.11); EST GLOMERULAR FILTRATION RATE > 60 ML/MIN (60-); GLUCOSE 164 mg/dL (74-118); POTASSIUM 4.2 mmol/L (3.5-5.1); SODIUM 137 mmol/L (136-145)
[~2020-12-19] VITALS: Ht 157.5 cm; Wt 80.7 kg
[~2020-12-19] MED LIST changes: +ALPRAZOLAM 0.5 MG TAB ONE; +CEFUROXIME500 MG; +CITRUCEL500 MG PO; +DIPHENHYDRAMINE HCL 25 MG CAP ONE; +DULCOLAX PO; +FENTANYL CITRATE/PF 100MCG/2 ML INJ ONE; +FLUOXETINE HCL20 MG PO; +FUROSEMIDE40 MG PO; +HEPARIN SOD (PORCINE) 1000 UNIT/ML 30ML ONE; +HEPARIN SOD/SOD CHLORIDE 2,000 ML ONE; +IOPAMIDOL 370 MG/ML 200 ML INFUS..BTL INJ ONE; +LEVOFLOXACIN250 MG PO; +LIDOCAINE HCL 2% LOCAL 20 ML VIAL ONE; +MIDAZOLAM HCL 2 MG/2 ML VIAL ONE; +SODIUM CHLORIDE 0.9% 1000ML 1,000 ML ONE; +TEMAZEPAM15 MG PO; +VERAPAMIL HCL 2.5 MG/ML 2 ML VIAL ONE; +VITAMIN D3 PO
[2020-12-19 14:45] VITALS: BP 141/58
[2020-12-19 15:00] VITALS: BP 135/74
[2020-12-19 15:15] VITALS: BP 136/60
[2020-12-19 15:30] VITALS: BP 121/60
[2020-12-19 15:45] VITALS: BP 120/48
[2020-12-19 16:00] VITALS: BP 132/70
== END | disposition home or self-care (01) ==
LOC: CATH LAB 12:28
PROVIDERS: ATTEND Internal Medicine Interventional Cardiology
DX: I25.119 Atherosclerotic heart disease of native coronary artery with unspecified angina pectoris (principal); I50.31 Acute diastolic (congestive) heart failure; R94.39 Abnormal result of other cardiovascular function study; I35.0 Nonrheumatic aortic (valve) stenosis; R09.89 Other specified symptoms and signs involving the circulatory and respiratory systems; E78.00 Pure hypercholesterolemia, unspecified; E11.9 Type 2 diabetes mellitus without complications; Z01.812 Encounter for preprocedural laboratory examination; Z20.822 Contact with and (suspected) exposure to COVID-19; Z79.82 Long term (current) use of aspirin; Z79.84 Long term (current) use of oral hypoglycemic drugs; Z68.32 Body mass index [BMI] 32.0-32.9, adult; Z82.49 Family history of ischemic heart disease and other diseases of the circulatory system; Z83.3 Family history of diabetes mellitus
CPT/HCPCS: 36415 ×2; 76937; 80053; 82948; 83880; 85025; 85610; 93454; C1887; C1894; J1644; J2001; J2250; J3010; J7030; Q9967; U0002; 99152

== ENCOUNTER 2021-02-22 08:02 | Observation (INO) | payer MEDICARE ==
[~2021-02-22] VITALS: Ht 157.5 cm; Wt 80.7 kg
[~2021-02-22 08:02] MED LIST changes: -ALPRAZOLAM 0.5 MG TAB ONE; -DIPHENHYDRAMINE HCL 25 MG CAP ONE; -FENTANYL CITRATE/PF 100MCG/2 ML INJ ONE; -HEPARIN SOD (PORCINE) 1000 UNIT/ML 30ML ONE; -HEPARIN SOD/SOD CHLORIDE 2,000 ML ONE; -IOPAMIDOL 370 MG/ML 200 ML INFUS..BTL INJ ONE; -LIDOCAINE HCL 2% LOCAL 20 ML VIAL ONE; -MIDAZOLAM HCL 2 MG/2 ML VIAL ONE; -SODIUM CHLORIDE 0.9% 1000ML 1,000 ML ONE; -VERAPAMIL HCL 2.5 MG/ML 2 ML VIAL ONE
[2021-02-22 08:39] LABS: BASOPHILS # (AUTO) 0.1 (0.0-0.1); BASOPHILS % 0.5 % (0.0-1.0); EOSINOPHILS # (AUTO) 0.4 (0.0-0.4); EOSINOPHILS % 2.7 % (0.0-6.0); HEMATOCRIT 41.7 % (34.2-44.1); HEMOGLOBIN 13.8 g/dL (12.0-16.0); LYMPHOCYTES # (AUTO) 3.2 (1.0-3.2); LYMPHOCYTES % 24.8 % (18.0-39.1); MEAN CORPUSCULAR HEMOGLOBIN 29.5 pg (28-32); MEAN CORPUSCULAR HGB CONC 33.1 g/dL (31-35); MEAN CORPUSCULAR VOLUME 89.1 fL (81-99); MONOCYTES % 7.3 % (4.4-11.3); NEUTROPHILS # (AUTO) 8.4 (2.1-6.9); NEUTROPHILS % 64.3 % (38.7-80.0); PLATELET COUNT 247 x10e3/uL (140-360); RED BLOOD COUNT 4.68 x10e6/uL (3.6-5.1); RED CELL DISTRIBUTION WIDTH 13.8 % (11.7-14.4)
[2021-02-22 09:02] LABS: ALANINE AMINOTRANSFERASE 20 IU/L (0-55); ALBUMIN 3.9 g/dL (3.5-5.0); ALBUMIN/GLOBULIN RATIO 0.9 (0.8-2.0); ALKALINE PHOSPHATASE 90 IU/L (40-150); ANION GAP 17.8 mmol/L (8-16); BLOOD UREA NITROGEN 19 mg/dL (7-26); BUN/CREATININE RATIO 23 (6-25); CALCIUM 9.4 mg/dL (8.4-10.2); CARBON DIOXIDE 25 mmol/L (22-29); CHLORIDE 100 mmol/L (98-107); CREATINE KINASE 78 IU/L (29-168); CREATININE, SERUM 0.83 mg/dL (0.57-1.11); EST GLOMERULAR FILTRATION RATE > 60 ML/MIN (60-); GLUCOSE 191 mg/dL (74-118); MAGNESIUM 1.8 MG/DL (1.3-2.1); POTASSIUM 3.8 mmol/L (3.5-5.1); SODIUM 139 mmol/L (136-145)
[2021-02-22 09:11] LABS: CLARITY,URINE CLEAR (CLEAR); COLOR,URINE YELLOW (YELLOW); LEUKOCYTE ESTERASE ,URINE TRACE (NEGATIVE)
[2021-02-22 09:12] LABS: KETONES,URINE NEGATIVE (NEGATIVE); NITRITE,URINE NEGATIVE (NEGATIVE); PROTEIN,URINE DIPSTICK 2+ (NEGATIVE); URINE UROBILINOGEN 0.2 mg/dL (0.2 - 1)
[2021-02-22 09:18] LABS: INR 0.86; PARTIAL THROMBOPLASTIN TIME 28.6 seconds (23.8-35.5); PROTHROMBIN TIME 12.3 seconds (11.9-14.5)
[2021-02-22 09:22] LABS: B-TYPE NATRIURETIC PEPTIDE2 420.5 pg/mL (0-100)
[2021-02-22 09:35] LABS: BACTERIA,URINE RARE /HPF; EPITHELIAL CELLS,URINE RARE /LPF; RBC,URINE 0-5 /HPF (0-5); WBC,URINE (MAN) 0-5 /HPF (0-5)
[2021-02-22] MEDS: CEFTRIAXONE 1 GM in SODIUM CHLORIDE 0.9% 50ML 50 ML IV SCH (09:40)
[2021-02-22] MEDS ORDERED: FUROSEMIDE INJ 10 MG/ML 4 ML VIAL IV ONE (10:00)
[2021-02-22] MEDS ORDERED: DEXTROSE 50% SYRINGE 50 ML IV PRN (10:15)
[2021-02-22] MEDS ORDERED: TEMAZEPAM 15 MG CAP PO PRN (10:45)
[2021-02-22] MEDS: INSULIN LISPRO 100 UNIT/1 ML 3ML VIAL SQ SCH ×3 (13:00→20:56)
[2021-02-22 16:41] LABS: CREATINE KINASE MB 4.7 ng/mL (0-5.0)
[2021-02-22] MEDS ORDERED: CLONIDINE HCL 0.1 MG TAB PO SCH (17:00)
[2021-02-22] MEDS ORDERED: ENALAPRIL MALEATE 10 MG TAB PO SCH (17:00)
[2021-02-22] MEDS: FUROSEMIDE INJ 10 MG/ML 4 ML VIAL IV SCH (20:53)
[2021-02-22] MEDS ORDERED: ATORVASTATIN 20 MG TAB PEG SCH (21:00)
[2021-02-23 01:34] LABS: CREATINE KINASE MB 3.8 ng/mL (0-5.0)
[2021-02-23 04:44] VITALS: BP 146/68
[2021-02-23 05:50] LABS: BASOPHILS % 0.2 % (0.0-1.0); EOSINOPHILS # (AUTO) 0.1 (0.0-0.4); EOSINOPHILS % 1.6 % (0.0-6.0); HEMATOCRIT 36.1 % (34.2-44.1); HEMOGLOBIN 11.9 g/dL (12.0-16.0); LYMPHOCYTES # (AUTO) 1.8 (1.0-3.2); LYMPHOCYTES % 20.8 % (18.0-39.1); MEAN CORPUSCULAR HEMOGLOBIN 29.2 pg (28-32); MEAN CORPUSCULAR VOLUME 88.5 fL (81-99); MONOCYTES # (AUTO) 0.8 (0.2-0.8); MONOCYTES % 8.8 % (4.4-11.3); NEUTROPHILS # (AUTO) 5.9 (2.1-6.9); NEUTROPHILS % 68.3 % (38.7-80.0); PLATELET COUNT 161 x10e3/uL (140-360); RED BLOOD COUNT 4.08 x10e6/uL (3.6-5.1); RED CELL DISTRIBUTION WIDTH 13.8 % (11.7-14.4)
[2021-02-23 06:31] LABS: ALANINE AMINOTRANSFERASE 18 IU/L (0-55); ALBUMIN 3.4 g/dL (3.5-5.0); ALBUMIN/GLOBULIN RATIO 0.9 (0.8-2.0); ALKALINE PHOSPHATASE 73 IU/L (40-150); ANION GAP 14.4 mmol/L (8-16); BLOOD UREA NITROGEN 16 mg/dL (7-26); BUN/CREATININE RATIO 22 (6-25); CALCIUM 8.9 mg/dL (8.4-10.2); CARBON DIOXIDE 29 mmol/L (22-29); CHLORIDE 99 mmol/L (98-107); CREATININE, SERUM 0.74 mg/dL (0.57-1.11); EST GLOMERULAR FILTRATION RATE > 60 ML/MIN (60-); GLUCOSE 141 mg/dL (74-118); POTASSIUM 3.4 mmol/L (3.5-5.1); SODIUM 139 mmol/L (136-145)
[2021-02-23 06:32] LABS: THYROID STIMULATING HORMONE 0.916 uIU/mL (0.350-4.940)
[2021-02-23] MEDS ORDERED: FLUOXETINE HCL 20 MG CAP PO SCH (09:00)
[2021-02-23] MEDS ORDERED: ASPIRIN 81 MG CHEW TAB PO SCH (09:00)
[2021-02-23] MEDS ORDERED: METOPROLOL SUCCINATE 50 MG TAB XL PO SCH (09:00)
[2021-02-23] MEDS ORDERED: AMLODIPINE BESYLATE 10 MG TAB PO SCH (09:00)
[2021-02-23] MEDS: FUROSEMIDE INJ 10 MG/ML 4 ML VIAL IV SCH (09:20)
[2021-02-23] MEDS ORDERED: SODIUM CHLORIDE 0.9% 50ML 50 ML ONE (09:24)
[2021-02-23] MEDS: CEFTRIAXONE 1 GM in SODIUM CHLORIDE 0.9% 50ML 50 ML IV SCH (09:26)
[2021-02-23 09:52] LABS: CREATINE KINASE MB 1.6 ng/mL (0-5.0)
[2021-02-23] MEDS ORDERED: POTASSIUM CHLORIDE 20 MEQ TAB CR PO ONE (10:30)
== END 2021-02-23 15:37 | disposition hospice, home (50) ==
LOC: ER 08:42 → ERHOLD 10:13 → INTOOBSV 10:13 → MED/SURG3 11:43 → OBSVTOIN 02-23 10:07 → INTOOBSV 02-23 10:07
PROVIDERS: ADMIT Internal Medicine; ATTEND Internal Medicine
DX: I13.0 Hypertensive heart and chronic kidney disease with heart failure and stage 1 through stage 4 chronic kidney disease, or unspecified chronic kidney disease (principal); I50.33 Acute on chronic diastolic (congestive) heart failure; F32.9 Major depressive disorder, single episode, unspecified; E11.9 Type 2 diabetes mellitus without complications; I35.0 Nonrheumatic aortic (valve) stenosis; Z20.822 Contact with and (suspected) exposure to COVID-19; E11.22 Type 2 diabetes mellitus with diabetic chronic kidney disease; N18.1 Chronic kidney disease, stage 1; E66.9 Obesity, unspecified; Z68.32 Body mass index [BMI] 32.0-32.9, adult
CPT/HCPCS: 36415 ×2; 71045; 80053 ×2; 81001; 82550 ×2; 82553 ×2; 82948 ×2; 83605; 83735; 83880; 84443; 84484 ×2; 85025 ×2; 85610; 85730; 87040; 87086; 93005; 99284; G0378 ×2; J0456 ×2; J0696 ×2; J1940 ×2; J7050 ×2; U0002

== ENCOUNTER → 2021-02-24 | Outpatient (CLI) | payer MEDICARE | LOC: US 13:38 | PROVIDERS: ATTEND Internal Medicine | DX: N28.1 Cyst of kidney, acquired (principal); K74.60 Unspecified cirrhosis of liver; K76.0 Fatty (change of) liver, not elsewhere classified | CPT/HCPCS: 76705; 76770 ==

== ENCOUNTER → 2021-04-21 | Outpatient (CLI) | payer MEDICARE ==
[~2021-04-21] MED LIST changes: +IOPAMIDOL 370 MG/ML 200 ML INFUS..BTL INJ ONE; +SODIUM CHLORIDE 0.9% 50ML 50 ML ONE
== END ==
LOC: CT 07:32
PROVIDERS: ATTEND Internal Medicine
DX: N28.1 Cyst of kidney, acquired (principal)
CPT/HCPCS: 74170; Q9967

== ENCOUNTER → 2021-06-19 | Day surgery (SDC) | payer MEDICARE ==
[2021-06-17 09:37] LABS: BASOPHILS % 0.5 % (0.0-1.0); EOSINOPHILS # (AUTO) 0.1 (0.0-0.4); EOSINOPHILS % 2.1 % (0.0-6.0); HEMATOCRIT 40.3 % (34.2-44.1); HEMOGLOBIN 12.9 g/dL (12.0-16.0); LYMPHOCYTES # (AUTO) 1.2 (1.0-3.2); LYMPHOCYTES % 18.6 % (18.0-39.1); MEAN CORPUSCULAR HEMOGLOBIN 28.7 pg (28-32); MEAN CORPUSCULAR VOLUME 89.6 fL (81-99); MONOCYTES # (AUTO) 0.7 (0.2-0.8); MONOCYTES % 11.1 % (4.4-11.3); NEUTROPHILS # (AUTO) 4.5 (2.1-6.9); NEUTROPHILS % 67.4 % (38.7-80.0); PLATELET COUNT 166 x10e3/uL (140-360)
[2021-06-17 10:06] LABS: ANION GAP 19.3 mmol/L (8-16); CALCIUM 9.9 mg/dL (8.4-10.2); CREATININE, SERUM 1.01 mg/dL (0.57-1.11); POTASSIUM 4.3 mmol/L (3.5-5.1)
[~2021-06-19] MED LIST changes: +BELLADONNA/OPIUM 30 MG SUPP RC ONE; +CETIRIZINE HCL10 MG PO; +FENTANYL CITRATE/PF 100MCG/2 ML INJ ONE; +GENTAMICIN 80MG/NS 100 ML 200 ML IV ONE; +IOPAMIDOL 300MG/ML 50ML INFUS..BTL IV ONE; -IOPAMIDOL 370 MG/ML 200 ML INFUS..BTL INJ ONE; +KLOR-CON M2020 MEQ PO; +LEVOFLOXACIN 500MG/D5W 100ML 100 ML IV ONE; +PLAVIX75 MG PO; -SODIUM CHLORIDE 0.9% 50ML 50 ML ONE
[2021-06-19 09:10] VITALS: BP 141/71
== END | disposition home or self-care (01) ==
LOC: OR 05:31
PROVIDERS: ATTEND Urology
DX: N20.0 Calculus of kidney (principal); N35.92 Unspecified urethral stricture, female; N28.1 Cyst of kidney, acquired; N13.8 Other obstructive and reflux uropathy; N81.6 Rectocele; N81.10 Cystocele, unspecified; N95.2 Postmenopausal atrophic vaginitis; E11.9 Type 2 diabetes mellitus without complications; I11.0 Hypertensive heart disease with heart failure; I50.9 Heart failure, unspecified; E78.5 Hyperlipidemia, unspecified; G62.9 Polyneuropathy, unspecified; K76.0 Fatty (change of) liver, not elsewhere classified; E66.9 Obesity, unspecified; F32.A Depression, unspecified; Z01.810 Encounter for preprocedural cardiovascular examination; Z01.812 Encounter for preprocedural laboratory examination; Z01.818 Encounter for other preprocedural examination; Z20.822 Contact with and (suspected) exposure to COVID-19; Z79.82 Long term (current) use of aspirin; Z79.02 Long term (current) use of antithrombotics/antiplatelets; Z79.84 Long term (current) use of oral hypoglycemic drugs
CPT/HCPCS: 36415; 50590; 52281; 71046; 74018; 80048; 83970; 84550; 85025; 93005; C1758; C1769; J1580; J1956; J3010; Q9967; U0002

== ENCOUNTER → 2021-08-03 | Outpatient (CLI) | payer MEDICARE ==
[~2021-08-03] MED LIST changes: -BELLADONNA/OPIUM 30 MG SUPP RC ONE; -FENTANYL CITRATE/PF 100MCG/2 ML INJ ONE; -GENTAMICIN 80MG/NS 100 ML 200 ML IV ONE; -IOPAMIDOL 300MG/ML 50ML INFUS..BTL IV ONE; -LEVOFLOXACIN 500MG/D5W 100ML 100 ML IV ONE
== END ==
LOC: US 11:10
PROVIDERS: ATTEND Urology
DX: N18.9 Chronic kidney disease, unspecified (principal); N28.1 Cyst of kidney, acquired
CPT/HCPCS: 74018; 76770

== ENCOUNTER → 2021-09-23 | Outpatient (CLI) | payer MEDICARE ==
[~2021-09-23] MED LIST changes: +IOPAMIDOL 370 MG/ML 200 ML INFUS..BTL INJ ONE; +SODIUM CHLORIDE 0.9% 50ML 50 ML ONE
[2021-09-23 13:55] LABS: CREATININE, SERUM 0.8 mg/dL (0.57-1.11)
== END ==
LOC: CT 13:06
PROVIDERS: ATTEND Internal Medicine
DX: E83.52 Hypercalcemia (principal); Z12.89 Encounter for screening for malignant neoplasm of other sites
CPT/HCPCS: 36415; 71260; 82565; 84520; Q9967

== ENCOUNTER 2021-10-03 12:02 | Inpatient (IN) | payer MEDICARE ==
[~2021-10-03] VITALS: Ht 157.5 cm; Wt 73.5 kg
[~2021-10-03 12:02] MED LIST changes: -IOPAMIDOL 370 MG/ML 200 ML INFUS..BTL INJ ONE; -SODIUM CHLORIDE 0.9% 50ML 50 ML ONE
[2021-10-03] MEDS: SODIUM CHLORIDE 0.9% 1000ML 1,000 ML IV SCH (12:30)
[2021-10-03] MEDS ORDERED: DEXTROSE 50% SYRINGE 50 ML IV PRN ×2 (12:30→21:45)
[2021-10-03 13:46] LABS: BASOPHILS % 0.3 % (0.0-1.0); HEMATOCRIT 35.6 % (34.2-44.1); HEMOGLOBIN 11.2 g/dL (12.0-16.0); LYMPHOCYTES # (AUTO) 0.6 (1.0-3.2); LYMPHOCYTES % 15.6 % (18.0-39.1); MEAN CORPUSCULAR HEMOGLOBIN 25.3 pg (28-32); MEAN CORPUSCULAR HGB CONC 31.5 g/dL (31-35); MEAN CORPUSCULAR VOLUME 80.5 fL (81-99); MONOCYTES # (AUTO) 0.4 (0.2-0.8); MONOCYTES % 9.8 % (4.4-11.3); NEUTROPHILS # (AUTO) 2.9 (2.1-6.9); PLATELET COUNT 153 x10e3/uL (140-360); RED BLOOD COUNT 4.42 x10e6/uL (3.6-5.1); RED CELL DISTRIBUTION WIDTH 15.7 % (11.7-14.4)
[2021-10-03 14:18] LABS: ALBUMIN 2.7 g/dL (3.5-5.0); ALBUMIN/GLOBULIN RATIO 0.5 (0.8-2.0); ANION GAP 16.3 mmol/L (8-16); CALCIUM 12.9 mg/dL (8.4-10.2); CREATININE, SERUM 1.27 mg/dL (0.57-1.11); POTASSIUM 3.3 mmol/L (3.5-5.1)
[2021-10-03] MEDS ORDERED: POTASSIUM CHLORIDE 20 MEQ TAB CR PO STA (14:25)
[2021-10-03] MEDS ORDERED: TEMAZEPAM 15 MG CAP PO PRN (14:30)
[2021-10-03] MEDS ORDERED: FUROSEMIDE INJ 10 MG/ML 4 ML VIAL IV ONE (14:30)
[2021-10-03] MEDS ORDERED: METFORMIN HCL 850 MG TAB PO SCH (15:00)
[2021-10-03 15:49] VITALS: BP 152/83
[2021-10-03] MEDS ORDERED: INSULIN LISPRO 100 UNIT/1 ML 3ML VIAL SQ SCH ×2 (16:30→21:00)
[2021-10-03] MEDS: ENALAPRIL MALEATE 10 MG TAB PO SCH (17:00)
[2021-10-03] MEDS: FUROSEMIDE 40 MG TAB PO SCH (17:00)
[2021-10-03 17:21] LABS: FREE T4 (FREE THYROXINE) 1.09 ng/dL (0.8-1.8); THYROID STIMULATING HORMONE 1.251 uIU/mL (0.350-4.940)
[2021-10-03] MEDS ORDERED: MAGNESIUM SULFATE 2GM/50ML 100 ML IV ONE (17:30)
[2021-10-03 20:00] VITALS: BP 152/83
[2021-10-03] MEDS: METOPROLOL SUCCINATE 50 MG TAB XL PO SCH (20:34)
[2021-10-03] MEDS: ATORVASTATIN 10 MG TAB PO SCH (20:34)
[2021-10-04] VITALS (8 sets, daily range): BP systolic 133–163; BP diastolic 53–89
[2021-10-04] MEDS: SODIUM CHLORIDE 0.9% 1000ML 1,000 ML IV SCH ×3 (00:04→19:58)
[2021-10-04 06:16] LABS: ANION GAP 11.8 mmol/L (8-16); CALCIUM 11.7 mg/dL (8.4-10.2); CREATININE, SERUM 0.97 mg/dL (0.57-1.11)
[2021-10-04 06:20] LABS: POTASSIUM 2.8 mmol/L (3.5-5.1)
[2021-10-04] MEDS ORDERED: POTASSIUM CHLORIDE 20 MEQ TAB CR PO STA (06:37)
[2021-10-04] MEDS: INSULIN LISPRO 100 UNIT/1 ML 3ML VIAL SQ SCH ×4 (07:30→22:12)
[2021-10-04] MEDS ORDERED: FUROSEMIDE INJ 10 MG/ML 2 ML VIAL IV SCH (09:00)
[2021-10-04] MEDS ORDERED: POTASSIUM CHLORIDE 20 MEQ TAB CR PO SCH (09:00)
[2021-10-04] MEDS: CLOPIDOGREL BISULFATE 75 MG TAB PO SCH (09:11)
[2021-10-04] MEDS: AMLODIPINE BESYLATE 5 MG TAB PO SCH (09:11)
[2021-10-04] MEDS: FUROSEMIDE 40 MG TAB PO SCH (09:11)
[2021-10-04] MEDS: ASPIRIN 81 MG CHEW TAB PO SCH (09:12)
[2021-10-04] MEDS: ENALAPRIL MALEATE 10 MG TAB PO SCH ×2 (09:12→16:28)
[2021-10-04] MEDS: FLUOXETINE HCL 20 MG CAP PO SCH (09:20)
[2021-10-04] MEDS: HYDRALAZINE HCL 25 MG TAB PO SCH (16:28)
[2021-10-04] MEDS: METOPROLOL SUCCINATE 50 MG TAB XL PO SCH (21:52)
[2021-10-04] MEDS: ATORVASTATIN 10 MG TAB PO SCH (21:52)
[2021-10-05] VITALS: BP 116/62
[2021-10-05 04:00] VITALS: BP 143/67
[2021-10-05 06:36] LABS: ANION GAP 11.9 mmol/L (8-16); CALCIUM 11.1 mg/dL (8.4-10.2); CREATININE, SERUM 0.93 mg/dL (0.57-1.11)
[2021-10-05 07:14] LABS: POTASSIUM 2.9 mmol/L (3.5-5.1)
[2021-10-05] MEDS: SODIUM CHLORIDE 0.9% 1000ML 1,000 ML IV SCH (07:24)
[2021-10-05] MEDS: INSULIN LISPRO 100 UNIT/1 ML 3ML VIAL SQ SCH ×3 (07:30→18:48)
[2021-10-05] MEDS ORDERED: POTASSIUM CHLORIDE 10MEQ EA PO ONE ×3 (07:30→11:30)
[2021-10-05] MEDS ORDERED: MAGNESIUM SULFATE 2GM/50ML 50 ML IV ONE (07:30)
[2021-10-05 07:50] LABS: BASOPHILS % 0.5 % (0.0-1.0); EOSINOPHILS # (AUTO) 0.1 (0.0-0.4); HEMATOCRIT 31.4 % (34.2-44.1); HEMOGLOBIN 9.7 g/dL (12.0-16.0); LYMPHOCYTES # (AUTO) 0.8 (1.0-3.2); LYMPHOCYTES % 19.2 % (18.0-39.1); MEAN CORPUSCULAR HEMOGLOBIN 25.3 pg (28-32); MEAN CORPUSCULAR HGB CONC 30.9 g/dL (31-35); MONOCYTES # (AUTO) 0.4 (0.2-0.8); MONOCYTES % 11.3 % (4.4-11.3); NEUTROPHILS # (AUTO) 2.6 (2.1-6.9); NEUTROPHILS % 66.5 % (38.7-80.0); PLATELET COUNT 133 x10e3/uL (140-360); RED BLOOD COUNT 3.83 x10e6/uL (3.6-5.1); RED CELL DISTRIBUTION WIDTH 16.4 % (11.7-14.4)
[2021-10-05 08:00] VITALS: BP 143/67
[2021-10-05 08:00] LABS: ALBUMIN 2.5 g/dL (3.5-5.0); BILIRUBIN,DIRECT 0.4 mg/dL (0.0-0.5)
[2021-10-05 08:33] VITALS: BP 144/86
[2021-10-05] MEDS: HYDRALAZINE HCL 25 MG TAB PO SCH ×2 (09:00→17:00)
[2021-10-05] MEDS: AMLODIPINE BESYLATE 5 MG TAB PO SCH (09:00)
[2021-10-05] MEDS: ASPIRIN 81 MG CHEW TAB PO SCH (09:00)
[2021-10-05] MEDS ORDERED: PAMIDRONATE DISODIUM 30 MG/VIAL IV ONE (09:00)
[2021-10-05] MEDS: FLUOXETINE HCL 20 MG CAP PO SCH (09:00)
[2021-10-05] MEDS: CLOPIDOGREL BISULFATE 75 MG TAB PO SCH (09:00)
[2021-10-05] MEDS: ENALAPRIL MALEATE 10 MG TAB PO SCH ×2 (09:00→17:00)
[2021-10-05] MEDS ORDERED: PAMIDRONATE DISODIUM 30 MG in SODIUM CHLORIDE 0.9% 500ML 500 ML IV ONE (09:00)
[2021-10-05] MEDS ORDERED: POTASSIUM CHLORIDE 20 MEQ TAB CR PO SCH (09:00)
[2021-10-05 12:50] VITALS: BP 152/61
[2021-10-05 14:07] LABS: SODIUM,URINE 100 mmol/L
[2021-10-05 14:21] LABS: TOTAL VOLUME, URINE 2450 ml/24hr (800-2000)
[2021-10-05] MEDS ORDERED: POTASSIUM CHLORIDE 10MEQ EA ONE (15:54)
[2021-10-05 17:01] VITALS: BP 158/81
[2021-10-07 11:13] LABS: ALPHA 2 GLOBULIN URINE PEP 10.2 % (.)
== END 2021-10-05 18:46 | disposition home or self-care (01) | DRG 641 ==
LOC: MED/SURG2 12:02
PROVIDERS: ADMIT Internal Medicine; ATTEND Internal Medicine
DX: E83.52 Hypercalcemia (principal); I13.0 Hypertensive heart and chronic kidney disease with heart failure and stage 1 through stage 4 chronic kidney disease, or unspecified chronic kidney disease; I50.32 Chronic diastolic (congestive) heart failure; I25.10 Atherosclerotic heart disease of native coronary artery without angina pectoris; E11.22 Type 2 diabetes mellitus with diabetic chronic kidney disease; N18.30 Chronic kidney disease, stage 3 unspecified; E83.42 Hypomagnesemia; E87.6 Hypokalemia; K74.60 Unspecified cirrhosis of liver; E11.42 Type 2 diabetes mellitus with diabetic polyneuropathy; Z86.73 Personal history of transient ischemic attack (TIA), and cerebral infarction without residual deficits; Z83.6 Family history of other diseases of the respiratory system; Z80.1 Family history of malignant neoplasm of trachea, bronchus and lung; Z80.3 Family history of malignant neoplasm of breast; I35.0 Nonrheumatic aortic (valve) stenosis; N20.0 Calculus of kidney; S00.83XA Contusion of other part of head, initial encounter; W19.XXXA Unspecified fall, initial encounter; Z87.442 Personal history of urinary calculi; E78.5 Hyperlipidemia, unspecified; Z95.2 Presence of prosthetic heart valve; E21.3 Hyperparathyroidism, unspecified; R63.4 Abnormal weight loss; N28.9 Disorder of kidney and ureter, unspecified; E11.649 Type 2 diabetes mellitus with hypoglycemia without coma; Z20.822 Contact with and (suspected) exposure to COVID-19
CPT/HCPCS: 36415; 71045; 78071; 80048; 80053; 80076; 81050; 82310; 82652; 82948; 83036; 83519; 83735; 83970; 84165; 84166; 84300; 84439; 84443; 85025; 93005; A9512; J1940; J2430; J3475; J7030; J7040; U0002

== ENCOUNTER 2021-12-14 19:06 | Inpatient (IN) | payer MEDICARE ==
[~2021-12-14] VITALS: Ht 157.5 cm; Wt 75.3 kg
[2021-12-14] MEDS ORDERED: OCTREOTIDE ACETATE 500 MCG in SODIUM CHLORIDE 0.9% 250ML 249 ML IV SCH (19:45)
[2021-12-14] MEDS ORDERED: OCTREOTIDE ACETATE 0.05 MG/ML AMP IV ONE (19:45)
[2021-12-14 19:49] LABS: BASOPHILS % 0.2 % (0.0-1.0); EOSINOPHILS % 0.1 % (0.0-6.0); LYMPHOCYTES # (AUTO) 2.8 (1.0-3.2); LYMPHOCYTES % 20.5 % (18.0-39.1); MEAN CORPUSCULAR HEMOGLOBIN 23.9 pg (28-32); MEAN CORPUSCULAR HGB CONC 28.3 g/dL (31-35); MEAN CORPUSCULAR VOLUME 84.3 fL (81-99); MONOCYTES # (AUTO) 0.8 (0.2-0.8); MONOCYTES % 5.7 % (4.4-11.3); NEUTROPHILS % 72.6 % (38.7-80.0); PLATELET COUNT 288 x10e3/uL (140-360); RED BLOOD COUNT 1.97 x10e6/uL (3.6-5.1); RED CELL DISTRIBUTION WIDTH 17.2 % (11.7-14.4)
[2021-12-14 19:52] LABS: HEMATOCRIT 16.6 % (34.2-44.1); HEMOGLOBIN 4.7 g/dL (12.0-16.0)
[2021-12-14] MEDS ORDERED: SODIUM CHLORIDE 0.9% 250ML 250 ML ONE (19:54)
[2021-12-14] MEDS: OCTREOTIDE ACETATE 500 MCG in SODIUM CHLORIDE 0.9% 250ML 249 ML IV SCH (19:55)
[2021-12-14 19:58] LABS: INR 1.2; PROTHROMBIN TIME 16.3 seconds (11.9-14.5)
[2021-12-14] MEDS ORDERED: ONDANSETRON HCL INJ 2MG/ML 2ML 2 MG/ML VIAL ONE (19:58)
[2021-12-14] MEDS ORDERED: ONDANSETRON HCL INJ 2MG/ML 2ML 2 MG/ML VIAL IV STA (19:59)
[2021-12-14] MEDS ORDERED: CEFTRIAXONE 1 GM in SODIUM CHLORIDE 0.9% 50ML 50 ML IV SCH (20:00)
[2021-12-14] MEDS ORDERED: SODIUM CHLORIDE 0.9% 1000ML 1,000 ML ONE (20:03)
[2021-12-14 20:06] LABS: ALBUMIN 2.2 g/dL (3.5-5.0); ALBUMIN/GLOBULIN RATIO 0.6 (0.8-2.0); ANION GAP 23.4 mmol/L (8-16); CALCIUM 9.5 mg/dL (8.4-10.2); CREATININE, SERUM 0.91 mg/dL (0.57-1.11)
[2021-12-14 20:07] LABS: POTASSIUM 5.4 mmol/L (3.5-5.1)
[2021-12-14] MEDS ORDERED: DEXTROSE 50% SYRINGE 50 ML IV PRN (20:30)
[2021-12-14] MEDS ORDERED: TEMAZEPAM 15 MG CAP PO PRN ×2 (20:30)
[2021-12-14] MEDS ORDERED: HYDRALAZINE HCL 20 MG/ML VIAL IV PRN (20:30)
[2021-12-14] MEDS: INSULIN REGULAR, HUMAN 100 UNIT/1 ML SQ SCH (21:00)
[2021-12-14] MEDS ORDERED: CLOPIDOGREL75 MG PO (21:17)
[2021-12-14] MEDS ORDERED: ATORVASTATIN CA10 MG PO (21:17)
[2021-12-14] MEDS ORDERED: POTASSIUM CHLO20 ME1 PO (21:17)
[2021-12-14] MEDS ORDERED: AMLODIPINE-OLM1 EAC3 PO (21:17)
[2021-12-14] MEDS ORDERED: DOXAZOSIN MESYLA1 MG PO (21:17)
[2021-12-14] MEDS ORDERED: CITRUCEL500 MG PO (21:18)
[2021-12-14] MEDS ORDERED: VITAMIN D350 MCG PO (21:25)
[2021-12-14] MEDS ORDERED: BISACODYL5 MG PO (21:25)
[2021-12-14 21:42] LABS: % IRON SATURATION 5 % (15-50); IRON 23 ug/dL (50-170); TOTAL IRON BINDING CAPACITY 420 ug/dL (261-478); TRANSFERRIN 300 mg/dL (180-382)
[2021-12-14] MEDS: Pantoprazole IV 40 MG in SODIUM CHLORIDE 0.9% 50ML 50 ML IV SCH (22:39)
[2021-12-14 23:08] LABS: ABG PCO2 30 mmHg (35-45); ABG PH 7.33 (7.35-7.45); ABG PO2 91 mmHg (80-105)
[2021-12-14 23:09] LABS: ABG HCO3 16 mmol/L (22-26); ABG TCO2 17
[2021-12-14] MEDS ORDERED: CYANOCOBALAMIN INJ 1,000 MCG/ML VIAL IM ONE (23:15)
[2021-12-14 23:20] VITALS: BP 131/65
[2021-12-14 23:45] VITALS: BP 131/65
[2021-12-14] MEDS: METRONIDAZOLE 500MG/NS 100ML 100 ML IV SCH (23:45)
[2021-12-15] VITALS (65 sets, daily range): BP systolic 90–159; BP diastolic 2–110
[2021-12-15 00:07] LABS: CLARITY,URINE CLEAR (CLEAR); COLOR,URINE YELLOW (YELLOW); KETONES,URINE TRACE (NEGATIVE); LEUKOCYTE ESTERASE ,URINE NEGATIVE (NEGATIVE); NITRITE,URINE NEGATIVE (NEGATIVE); PROTEIN,URINE DIPSTICK NEGATIVE (NEGATIVE); URINE UROBILINOGEN 0.2 mg/dL (0.2 - 1)
[2021-12-15 00:19] LABS: BACTERIA,URINE MANY /HPF; EPITHELIAL CELLS,URINE MODERATE /LPF; RBC,URINE 0-5 /HPF (0-5); TRANSITIONAL EPI CELLS,URINE MODERATE
[2021-12-15 01:20] LABS: BASOPHILS % 0.1 % (0.0-1.0); LYMPHOCYTES # (AUTO) 1.1 (1.0-3.2); LYMPHOCYTES % 15.4 % (18.0-39.1); MEAN CORPUSCULAR HEMOGLOBIN 25.5 pg (28-32); MEAN CORPUSCULAR HGB CONC 30.6 g/dL (31-35); MEAN CORPUSCULAR VOLUME 83.3 fL (81-99); MONOCYTES # (AUTO) 0.5 (0.2-0.8); MONOCYTES % 6.9 % (4.4-11.3); NEUTROPHILS # (AUTO) 5.6 (2.1-6.9); NEUTROPHILS % 77.1 % (38.7-80.0); RED BLOOD COUNT 2.51 x10e6/uL (3.6-5.1); RED CELL DISTRIBUTION WIDTH 15.9 % (11.7-14.4)
[2021-12-15 01:24] LABS: HEMATOCRIT 20.9 % (34.2-44.1); HEMOGLOBIN 6.4 g/dL (12.0-16.0)
[2021-12-15 01:25] LABS: PLATELET COUNT 148 x10e3/uL (140-360)
[2021-12-15] MEDS ORDERED: SODIUM CHLORIDE 0.9% 250ML 250 ML IV ONE (01:45)
[2021-12-15] MEDS ORDERED: METOCLOPRAMIDE HCL 10 MG/2ML VIAL IV ONE (02:45)
[2021-12-15] MEDS: Pantoprazole IV 40 MG in SODIUM CHLORIDE 0.9% 50ML 50 ML IV SCH ×5 (03:06→19:43)
[2021-12-15] MEDS ORDERED: SODIUM CHLORIDE 0.9% 250ML 250 ML ONE ×4 (05:52→16:42)
[2021-12-15] MEDS: OCTREOTIDE ACETATE 500 MCG in SODIUM CHLORIDE 0.9% 250ML 249 ML IV SCH ×2 (06:18→16:31)
[2021-12-15] MEDS: METRONIDAZOLE 500MG/NS 100ML 100 ML IV SCH ×3 (06:18→22:00)
[2021-12-15 06:38] LABS: ALBUMIN 2.3 g/dL (3.5-5.0); ALBUMIN/GLOBULIN RATIO 0.7 (0.8-2.0); CALCIUM 8.9 mg/dL (8.4-10.2); CREATININE, SERUM 0.83 mg/dL (0.57-1.11)
[2021-12-15] MEDS: INSULIN REGULAR, HUMAN 100 UNIT/1 ML SQ SCH ×4 (07:30→21:00)
[2021-12-15 08:58] LABS: BASOPHILS % 0.3 % (0.0-1.0); EOSINOPHILS % 0.5 % (0.0-6.0); HEMATOCRIT 21.5 % (34.2-44.1); LYMPHOCYTES # (AUTO) 1.1 (1.0-3.2); LYMPHOCYTES % 16.4 % (18.0-39.1); MEAN CORPUSCULAR HEMOGLOBIN 26.6 pg (28-32); MEAN CORPUSCULAR HGB CONC 32.6 g/dL (31-35); MEAN CORPUSCULAR VOLUME 81.7 fL (81-99); MONOCYTES # (AUTO) 0.7 (0.2-0.8); MONOCYTES % 10.9 % (4.4-11.3); NEUTROPHILS # (AUTO) 4.6 (2.1-6.9); NEUTROPHILS % 71.4 % (38.7-80.0); PLATELET COUNT 175 x10e3/uL (140-360); RED BLOOD COUNT 2.63 x10e6/uL (3.6-5.1); RED CELL DISTRIBUTION WIDTH 16.5 % (11.7-14.4)
[2021-12-15] MEDS: IRON SUCROSE 100 MG in SODIUM CHLORIDE 0.9% 100 ML 100 ML IV SCH (09:00)
[2021-12-15] MEDS ORDERED: AMLODIPINE BESYLATE 5 MG TAB PO SCH (09:00)
[2021-12-15] MEDS: CEFTRIAXONE 1 GM in SODIUM CHLORIDE 0.9% 50ML 50 ML IV SCH ×2 (09:00→19:57)
[2021-12-15] MEDS: CYANOCOBALAMIN INJ 1,000 MCG/ML VIAL IM SCH (09:00)
[2021-12-15] MEDS: METOCLOPRAMIDE HCL 10 MG/2ML VIAL IV SCH ×4 (09:07→23:31)
[2021-12-15 12:25] LABS: BASOPHILS % 0.3 % (0.0-1.0); EOSINOPHILS % 0.3 % (0.0-6.0); LYMPHOCYTES # (AUTO) 0.9 (1.0-3.2); LYMPHOCYTES % 13.9 % (18.0-39.1); MEAN CORPUSCULAR HEMOGLOBIN 26.6 pg (28-32); MEAN CORPUSCULAR HGB CONC 32.3 g/dL (31-35); MEAN CORPUSCULAR VOLUME 82.5 fL (81-99); MONOCYTES # (AUTO) 0.6 (0.2-0.8); MONOCYTES % 9.6 % (4.4-11.3); NEUTROPHILS # (AUTO) 4.7 (2.1-6.9); NEUTROPHILS % 75.4 % (38.7-80.0); PLATELET COUNT 189 x10e3/uL (140-360); RED BLOOD COUNT 2.63 x10e6/uL (3.6-5.1); RED CELL DISTRIBUTION WIDTH 16.8 % (11.7-14.4)
[2021-12-15 12:29] LABS: HEMATOCRIT 21.7 % (34.2-44.1)
[2021-12-15] MEDS ORDERED: HYDRALAZINE HCL 20 MG/ML VIAL IV PRN (16:45)
[2021-12-15 18:51] LABS: BASOPHILS % 0.3 % (0.0-1.0); EOSINOPHILS # (AUTO) 0.1 (0.0-0.4); EOSINOPHILS % 0.8 % (0.0-6.0); HEMATOCRIT 24.4 % (34.2-44.1); HEMOGLOBIN 7.7 g/dL (12.0-16.0); LYMPHOCYTES # (AUTO) 0.8 (1.0-3.2); LYMPHOCYTES % 11.9 % (18.0-39.1); MEAN CORPUSCULAR HEMOGLOBIN 26.5 pg (28-32); MEAN CORPUSCULAR HGB CONC 31.6 g/dL (31-35); MEAN CORPUSCULAR VOLUME 83.8 fL (81-99); MONOCYTES # (AUTO) 0.6 (0.2-0.8); MONOCYTES % 9.6 % (4.4-11.3); NEUTROPHILS % 76.5 % (38.7-80.0); PLATELET COUNT 211 x10e3/uL (140-360); RED BLOOD COUNT 2.91 x10e6/uL (3.6-5.1); RED CELL DISTRIBUTION WIDTH 16.6 % (11.7-14.4)
[2021-12-16] VITALS (30 sets, daily range): BP systolic 113–153; BP diastolic 46–112
[2021-12-16] MEDS ORDERED: PHYTONADIONE 10 MG/ML AMP IV ONE (02:15)
[2021-12-16] MEDS ORDERED: PHYTONADIONE 10MG/ML 20 MG in SODIUM CHLORIDE 0.9% 50ML 50 ML IV ONE (02:15)
[2021-12-16] MEDS: Pantoprazole IV 40 MG in SODIUM CHLORIDE 0.9% 50ML 50 ML IV SCH ×5 (02:30→20:51)
[2021-12-16] MEDS: OCTREOTIDE ACETATE 500 MCG in SODIUM CHLORIDE 0.9% 250ML 249 ML IV SCH ×3 (02:30→23:25)
[2021-12-16] MEDS: METOCLOPRAMIDE HCL 10 MG/2ML VIAL IV SCH ×4 (06:04→23:57)
[2021-12-16] MEDS: METRONIDAZOLE 500MG/NS 100ML 100 ML IV SCH ×3 (06:04→22:32)
[2021-12-16 06:20] LABS: BASOPHILS % 0.3 % (0.0-1.0); EOSINOPHILS # (AUTO) 0.1 (0.0-0.4); EOSINOPHILS % 1.6 % (0.0-6.0); HEMATOCRIT 24.5 % (34.2-44.1); LYMPHOCYTES # (AUTO) 0.9 (1.0-3.2); LYMPHOCYTES % 12.7 % (18.0-39.1); MEAN CORPUSCULAR HEMOGLOBIN 27.6 pg (28-32); MEAN CORPUSCULAR HGB CONC 32.7 g/dL (31-35); MEAN CORPUSCULAR VOLUME 84.5 fL (81-99); MONOCYTES # (AUTO) 0.5 (0.2-0.8); MONOCYTES % 7.4 % (4.4-11.3); NEUTROPHILS # (AUTO) 5.4 (2.1-6.9); NEUTROPHILS % 77.1 % (38.7-80.0); PLATELET COUNT 206 x10e3/uL (140-360); RED CELL DISTRIBUTION WIDTH 16.5 % (11.7-14.4)
[2021-12-16 06:37] LABS: INR 1.11; PROTHROMBIN TIME 15.3 seconds (11.9-14.5)
[2021-12-16 06:40] LABS: ALBUMIN 2.5 g/dL (3.5-5.0); ALBUMIN/GLOBULIN RATIO 0.7 (0.8-2.0); ANION GAP 11.6 mmol/L (8-16); CALCIUM 7.9 mg/dL (8.4-10.2); CREATININE, SERUM 0.76 mg/dL (0.57-1.11); POTASSIUM 3.6 mmol/L (3.5-5.1)
[2021-12-16] MEDS: INSULIN REGULAR, HUMAN 100 UNIT/1 ML SQ SCH ×4 (07:30→22:36)
[2021-12-16] MEDS: IRON SUCROSE 100 MG in SODIUM CHLORIDE 0.9% 100 ML 100 ML IV SCH (09:00)
[2021-12-16] MEDS: CYANOCOBALAMIN INJ 1,000 MCG/ML VIAL IM SCH (09:00)
[2021-12-16] MEDS: CEFTRIAXONE 1 GM in SODIUM CHLORIDE 0.9% 50ML 50 ML IV SCH ×2 (09:00→20:51)
[2021-12-16] MEDS ORDERED: SODIUM CHLORIDE 0.9% 250ML 250 ML ONE ×2 (12:18→23:35)
[2021-12-16] MEDS ORDERED: MIDAZOLAM HCL 2 MG/2 ML VIAL ONE (12:40)
[2021-12-16] MEDS ORDERED: FENTANYL CITRATE/PF 100MCG/2 ML INJ ONE (12:40)
[2021-12-16 13:06] LABS: BASOPHILS % 0.2 % (0.0-1.0); EOSINOPHILS # (AUTO) 0.1 (0.0-0.4); EOSINOPHILS % 0.9 % (0.0-6.0); HEMATOCRIT 25.6 % (34.2-44.1); HEMOGLOBIN 8.3 g/dL (12.0-16.0); LYMPHOCYTES # (AUTO) 0.6 (1.0-3.2); LYMPHOCYTES % 11.2 % (18.0-39.1); MEAN CORPUSCULAR HEMOGLOBIN 26.9 pg (28-32); MEAN CORPUSCULAR HGB CONC 32.4 g/dL (31-35); MEAN CORPUSCULAR VOLUME 82.8 fL (81-99); MONOCYTES # (AUTO) 0.4 (0.2-0.8); MONOCYTES % 7.3 % (4.4-11.3); NEUTROPHILS # (AUTO) 4.5 (2.1-6.9); NEUTROPHILS % 79.2 % (38.7-80.0); RED BLOOD COUNT 3.09 x10e6/uL (3.6-5.1); RED CELL DISTRIBUTION WIDTH 16.5 % (11.7-14.4)
[2021-12-16 13:08] LABS: PLATELET COUNT 168 x10e3/uL (140-360)
[2021-12-16] MEDS ORDERED: PROPOFOL IV EMULSION 10 MG/ML 20 ML VIAL ONE (13:15)
[2021-12-16 19:09] LABS: BASOPHILS % 0.5 % (0.0-1.0); EOSINOPHILS # (AUTO) 0.1 (0.0-0.4); EOSINOPHILS % 0.9 % (0.0-6.0); HEMOGLOBIN 7.9 g/dL (12.0-16.0); LYMPHOCYTES # (AUTO) 0.6 (1.0-3.2); LYMPHOCYTES % 11.2 % (18.0-39.1); MEAN CORPUSCULAR HEMOGLOBIN 26.3 pg (28-32); MEAN CORPUSCULAR HGB CONC 31.6 g/dL (31-35); MEAN CORPUSCULAR VOLUME 83.3 fL (81-99); MONOCYTES # (AUTO) 0.5 (0.2-0.8); MONOCYTES % 9.2 % (4.4-11.3); NEUTROPHILS # (AUTO) 4.3 (2.1-6.9); NEUTROPHILS % 76.4 % (38.7-80.0); PLATELET COUNT 118 x10e3/uL (140-360); RED CELL DISTRIBUTION WIDTH 16.7 % (11.7-14.4)
[2021-12-17] VITALS (24 sets, daily range): BP systolic 121–170; BP diastolic 58–86
[2021-12-17] MEDS: Pantoprazole IV 40 MG in SODIUM CHLORIDE 0.9% 50ML 50 ML IV SCH (02:57)
[2021-12-17] MEDS: METOCLOPRAMIDE HCL 10 MG/2ML VIAL IV SCH (05:36)
[2021-12-17] MEDS: METRONIDAZOLE 500MG/NS 100ML 100 ML IV SCH ×3 (05:36→21:16)
[2021-12-17 05:40] LABS: BASOPHILS % 0.4 % (0.0-1.0); EOSINOPHILS # (AUTO) 0.1 (0.0-0.4); EOSINOPHILS % 2.9 % (0.0-6.0); HEMATOCRIT 23.6 % (34.2-44.1); HEMOGLOBIN 7.6 g/dL (12.0-16.0); LYMPHOCYTES # (AUTO) 0.8 (1.0-3.2); LYMPHOCYTES % 15.9 % (18.0-39.1); MEAN CORPUSCULAR HGB CONC 32.2 g/dL (31-35); MONOCYTES # (AUTO) 0.4 (0.2-0.8); MONOCYTES % 8.5 % (4.4-11.3); NEUTROPHILS # (AUTO) 3.5 (2.1-6.9); NEUTROPHILS % 71.3 % (38.7-80.0); PLATELET COUNT 158 x10e3/uL (140-360); RED BLOOD COUNT 2.81 x10e6/uL (3.6-5.1); RED CELL DISTRIBUTION WIDTH 16.6 % (11.7-14.4)
[2021-12-17 05:57] LABS: ALBUMIN 2.4 g/dL (3.5-5.0); ALBUMIN/GLOBULIN RATIO 0.7 (0.8-2.0); ANION GAP 10.9 mmol/L (8-16); CALCIUM 7.6 mg/dL (8.4-10.2); CREATININE, SERUM 0.63 mg/dL (0.57-1.11)
[2021-12-17 06:01] LABS: POTASSIUM 2.9 mmol/L (3.5-5.1)
[2021-12-17] MEDS ORDERED: POTASSIUM CHLORIDE 10MEQ EA PO ONE ×2 (06:45→08:45)
[2021-12-17] MEDS: INSULIN REGULAR, HUMAN 100 UNIT/1 ML SQ SCH ×4 (07:30→20:11)
[2021-12-17] MEDS: METFORMIN HCL 850 MG TAB PO SCH ×3 (08:00→19:00)
[2021-12-17] MEDS: PANTOPRAZOLE SOD 40 MG TABEC PO SCH (08:31)
[2021-12-17] MEDS: CEFTRIAXONE 1 GM in SODIUM CHLORIDE 0.9% 50ML 50 ML IV SCH ×2 (08:33→20:11)
[2021-12-17] MEDS: CYANOCOBALAMIN INJ 1,000 MCG/ML VIAL IM SCH (08:33)
[2021-12-17] MEDS: PROPRANOLOL HCL 10 MG TAB PO SCH ×2 (08:33→19:00)
[2021-12-17] MEDS: AMLODIPINE BESYLATE 10 MG TAB PO SCH (08:35)
[2021-12-17] MEDS: FLUOXETINE HCL 20 MG CAP PO SCH (08:42)
[2021-12-17] MEDS ORDERED: FUROSEMIDE INJ 10 MG/ML 2 ML VIAL IV ONE ×2 (09:00→12:20)
[2021-12-17] MEDS: IRON SUCROSE 100 MG in SODIUM CHLORIDE 0.9% 100 ML 100 ML IV SCH (09:00)
[2021-12-17] MEDS ORDERED: SODIUM CHLORIDE 0.9% 250ML 250 ML IV ONE (09:00)
[2021-12-17] MEDS ORDERED: NON-FORMULARY MEDICATION (Amlodipine Bes/Olmesartan Med (Amlodipine-Olmesartan 10-40 mg) 1 PO SCH (09:00)
[2021-12-17] MEDS: OLMESARTAN 20 MG TAB PO SCH (09:00)
[2021-12-17] MEDS ORDERED: SODIUM CHLORIDE 0.9% 250ML 250 ML ONE ×2 (12:44→20:07)
[2021-12-17 17:24] LABS: BASOPHILS # (AUTO) 0.1 (0.0-0.1); BASOPHILS % 0.6 % (0.0-1.0); EOSINOPHILS # (AUTO) 0.1 (0.0-0.4); EOSINOPHILS % 1.6 % (0.0-6.0); HEMOGLOBIN 10.2 g/dL (12.0-16.0); LYMPHOCYTES # (AUTO) 0.9 (1.0-3.2); LYMPHOCYTES % 10.2 % (18.0-39.1); MEAN CORPUSCULAR HEMOGLOBIN 26.9 pg (28-32); MEAN CORPUSCULAR HGB CONC 31.9 g/dL (31-35); MEAN CORPUSCULAR VOLUME 84.4 fL (81-99); MONOCYTES # (AUTO) 0.7 (0.2-0.8); MONOCYTES % 7.9 % (4.4-11.3); NEUTROPHILS % 78.9 % (38.7-80.0); PLATELET COUNT 218 x10e3/uL (140-360); RED BLOOD COUNT 3.79 x10e6/uL (3.6-5.1); RED CELL DISTRIBUTION WIDTH 16.9 % (11.7-14.4)
[2021-12-17] MEDS ORDERED: METOPROLOL SUCCINATE 50 MG TAB XL PO SCH (21:00)
[2021-12-17] MEDS ORDERED: ATORVASTATIN 10 MG TAB PO SCH (21:00)
[2021-12-18] MEDS ORDERED: KETOROLAC TROMETHAMINE 30 MG/ML VIAL IV STA (02:46)
[2021-12-18 05:24] VITALS: BP 147/75
[2021-12-18] MEDS: METRONIDAZOLE 500MG/NS 100ML 100 ML IV SCH (05:58)
[2021-12-18 06:12] LABS: BASOPHILS % 0.5 % (0.0-1.0); EOSINOPHILS # (AUTO) 0.2 (0.0-0.4); EOSINOPHILS % 2.8 % (0.0-6.0); HEMATOCRIT 27.8 % (34.2-44.1); HEMOGLOBIN 8.8 g/dL (12.0-16.0); LYMPHOCYTES # (AUTO) 0.8 (1.0-3.2); LYMPHOCYTES % 13.8 % (18.0-39.1); MEAN CORPUSCULAR HEMOGLOBIN 26.8 pg (28-32); MEAN CORPUSCULAR HGB CONC 31.7 g/dL (31-35); MEAN CORPUSCULAR VOLUME 84.8 fL (81-99); MONOCYTES # (AUTO) 0.5 (0.2-0.8); NEUTROPHILS # (AUTO) 4.2 (2.1-6.9); NEUTROPHILS % 74.4 % (38.7-80.0); PLATELET COUNT 154 x10e3/uL (140-360); RED BLOOD COUNT 3.28 x10e6/uL (3.6-5.1); RED CELL DISTRIBUTION WIDTH 17.1 % (11.7-14.4)
[2021-12-18 06:37] LABS: ALBUMIN 2.4 g/dL (3.5-5.0); ALBUMIN/GLOBULIN RATIO 0.6 (0.8-2.0); CALCIUM 7.8 mg/dL (8.4-10.2); CREATININE, SERUM 0.69 mg/dL (0.57-1.11)
[2021-12-18] MEDS: INSULIN REGULAR, HUMAN 100 UNIT/1 ML SQ SCH ×2 (07:30→11:29)
[2021-12-18 07:56] VITALS: BP 132/78
[2021-12-18 08:03] VITALS: BP 132/78
[2021-12-18] MEDS: CEFTRIAXONE 1 GM in SODIUM CHLORIDE 0.9% 50ML 50 ML IV SCH (08:42)
[2021-12-18] MEDS: METFORMIN HCL 850 MG TAB PO SCH ×2 (08:42→13:00)
[2021-12-18] MEDS: CYANOCOBALAMIN INJ 1,000 MCG/ML VIAL IM SCH (08:42)
[2021-12-18] MEDS: PROPRANOLOL HCL 10 MG TAB PO SCH (08:43)
[2021-12-18] MEDS: AMLODIPINE BESYLATE 10 MG TAB PO SCH (08:43)
[2021-12-18] MEDS: FLUOXETINE HCL 20 MG CAP PO SCH (08:43)
[2021-12-18] MEDS: OLMESARTAN 20 MG TAB PO SCH (08:43)
[2021-12-18] MEDS: PANTOPRAZOLE SOD 40 MG TABEC PO SCH (08:48)
[2021-12-18] MEDS ORDERED: POTASSIUM CHLORIDE 10MEQ EA PO ONE ×3 (09:00→13:00)
[2021-12-18] MEDS: IRON SUCROSE 100 MG in SODIUM CHLORIDE 0.9% 100 ML 100 ML IV SCH (09:37)
[2021-12-18] MEDS ORDERED: PANTOPRAZOLE SO40 MG PO (11:35)
[2021-12-18] MEDS ORDERED: VITAMIN B-121000 MCG PO (11:35)
[2021-12-18] MEDS ORDERED: FEROSUL325 MG PO (11:36)
[2021-12-18] MEDS ORDERED: INDERAL10 MG PO (11:36)
[2021-12-18 11:47] VITALS: BP 146/78
[2021-12-18] MEDS ORDERED: METRONIDAZOLE 500 MG TAB PO SCH (14:00)
== END 2021-12-18 13:31 | disposition home or self-care (01) | DRG 432 ==
LOC: ER 19:42 → ERHOLD 20:26 → ICU 23:08 → MED/SURG2 12-17 14:33
PROVIDERS: ADMIT Internal Medicine; ATTEND Internal Medicine
PROC: 06L38CZ Occlusion of Esophageal Vein with Extraluminal Device, Via Natural or Artificial Opening Endoscopic (ICD-10-PCS; principal; 2021-12-14)
PROC: 30243K1 Transfusion of Nonautologous Frozen Plasma into Central Vein, Percutaneous Approach (ICD-10-PCS; 2021-12-14)
PROC: 30243N1 Transfusion of Nonautologous Red Blood Cells into Central Vein, Percutaneous Approach (ICD-10-PCS; 2021-12-14)
PROC: 02HV33Z Insertion of Infusion Device into Superior Vena Cava, Percutaneous Approach (ICD-10-PCS; 2021-12-14)
PROC: 30243R1 Transfusion of Nonautologous Platelets into Central Vein, Percutaneous Approach (ICD-10-PCS; 2021-12-15)
DX: K74.69 Other cirrhosis of liver (principal); I85.11 Secondary esophageal varices with bleeding; K76.6 Portal hypertension; D62 Acute posthemorrhagic anemia; I50.32 Chronic diastolic (congestive) heart failure; E87.2 Acidosis; N39.0 Urinary tract infection, site not specified; K76.0 Fatty (change of) liver, not elsewhere classified; K31.89 Other diseases of stomach and duodenum; I11.0 Hypertensive heart disease with heart failure; Z79.01 Long term (current) use of anticoagulants; Z95.2 Presence of prosthetic heart valve; N20.0 Calculus of kidney; E11.40 Type 2 diabetes mellitus with diabetic neuropathy, unspecified; E87.6 Hypokalemia; T38.3X5A Adverse effect of insulin and oral hypoglycemic [antidiabetic] drugs, initial encounter; N81.6 Rectocele; N81.10 Cystocele, unspecified; N95.2 Postmenopausal atrophic vaginitis; Z79.899 Other long term (current) drug therapy
CPT/HCPCS: 36415; 36569; 36600; 43239; 43255; 51700; 71045; 80053; 81001; 82607; 82746; 82805; 82948; 83540; 83605; 83880; 84466; 85025; 85045; 85610; 85730; 86850; 86900; 86920; 87040; 87086; 93005; 94799; 96360; 99284; J0360; J0696; J1756; J1817; J1885; J2250; J2353; J2354; J2405; J2765; J3010; J3420; J3430; J7030; J7050; P9016; P9017; P9034; U0002

== ENCOUNTER → 2022-02-23 | Outpatient (CLI) | payer MEDICARE ==
[~2022-02-23] MED LIST changes: +AMLODIPINE-OLM1 EAC3 PO; +ATORVASTATIN CA10 MG PO; +BISACODYL5 MG PO; +CLOPIDOGREL75 MG PO; +DOXAZOSIN MESYLA1 MG PO; +FEROSUL325 MG PO; +INDERAL10 MG PO; +PANTOPRAZOLE SO40 MG PO; +POTASSIUM CHLO20 ME1 PO; +VITAMIN B-121000 MCG PO; +VITAMIN D350 MCG PO
== END ==
LOC: CT 13:39
PROVIDERS: ATTEND Urology
DX: N20.0 Calculus of kidney (principal); N28.1 Cyst of kidney, acquired; N18.9 Chronic kidney disease, unspecified
CPT/HCPCS: 74176

== ENCOUNTER → 2022-03-31 | Day surgery (SDC) | payer MEDICARE ==
[2022-03-30 08:52] LABS: BASOPHILS % 0.5 % (0.0-1.0); EOSINOPHILS # (AUTO) 0.1 (0.0-0.4); EOSINOPHILS % 2.3 % (0.0-6.0); HEMATOCRIT 37.8 % (34.2-44.1); HEMOGLOBIN 11.9 g/dL (12.0-16.0); LYMPHOCYTES # (AUTO) 0.6 (1.0-3.2); LYMPHOCYTES % 14.3 % (18.0-39.1); MEAN CORPUSCULAR HEMOGLOBIN 27.7 pg (28-32); MEAN CORPUSCULAR HGB CONC 31.5 g/dL (31-35); MEAN CORPUSCULAR VOLUME 88.1 fL (81-99); MONOCYTES # (AUTO) 0.4 (0.2-0.8); MONOCYTES % 9.5 % (4.4-11.3); NEUTROPHILS # (AUTO) 3.2 (2.1-6.9); NEUTROPHILS % 73.2 % (38.7-80.0); PLATELET COUNT 126 x10e3/uL (140-360); RED BLOOD COUNT 4.29 x10e6/uL (3.6-5.1); RED CELL DISTRIBUTION WIDTH 15.4 % (11.7-14.4)
[2022-03-30 09:15] LABS: ALBUMIN 2.7 g/dL (3.5-5.0); ALBUMIN/GLOBULIN RATIO 0.5 (0.8-2.0); ANION GAP 13.9 mmol/L (8-16); CREATININE, SERUM 0.92 mg/dL (0.57-1.11); POTASSIUM 3.9 mmol/L (3.5-5.1)
[~2022-03-31] MED LIST changes: +B&O 60MG R/S 60 MG SUPP PR ONE; +CEFTRIAXONE 1 GM VIAL ONE; +CEPHALEXIN500 MG PO; +DEXAMETHASONE SOD PHOS INJ 4 MG/ML SDV ONE; +DEXTROSE 5% 250ML 0 ML IV ONE; +FENTANYL CITRATE/PF 100MCG/2 ML INJ ONE; +GENTAMICIN 80MG/NS 100 ML 200 ML IV ONE; +IOPAMIDOL 610MG/1ML 300 MG/ML VIAL IV ONE; +LIDOCAINE HCL 2% LOCAL INJ 5 ML SDV VIAL INJ ONE; +MIDAZOLAM HCL 2 MG/2 ML VIAL ONE; +ONDANSETRON HCL INJ 2MG/ML 2ML 2 MG/ML VIAL ONE; +POVIDONE IODINE 0.05% 0.05 % ML PO ONE; +PROPOFOL IV EMULSION 10 MG/ML 20 ML VIAL ONE; +SEVOFLURANE INHAL SOLN 250 ML PEN BTL ONE; +SODIUM CHLORIDE 0.9% 1000ML 1,000 ML ONE
[2022-03-31 08:55] VITALS: BP 145/71
== END | disposition home or self-care (01) ==
LOC: OR 07:11
PROVIDERS: ATTEND Urology
DX: N20.0 Calculus of kidney (principal); N35.92 Unspecified urethral stricture, female; N39.0 Urinary tract infection, site not specified; N28.1 Cyst of kidney, acquired; N81.2 Incomplete uterovaginal prolapse; N81.6 Rectocele; N95.2 Postmenopausal atrophic vaginitis; E11.9 Type 2 diabetes mellitus without complications; E78.5 Hyperlipidemia, unspecified; I11.0 Hypertensive heart disease with heart failure; I50.9 Heart failure, unspecified; G62.9 Polyneuropathy, unspecified; K74.60 Unspecified cirrhosis of liver; K22.2 Esophageal obstruction; I25.10 Atherosclerotic heart disease of native coronary artery without angina pectoris; Z01.812 Encounter for preprocedural laboratory examination; Z01.818 Encounter for other preprocedural examination; Z20.822 Contact with and (suspected) exposure to COVID-19; Z79.899 Other long term (current) drug therapy; Z95.5 Presence of coronary angioplasty implant and graft
CPT/HCPCS: 0223U; 36415; 50590; 52281; 71046; 74018; 80053; 84550; 85025; 87086; C1758; C1769; J0696; J1100; J1580; J2001; J2250; J2405; J2704; J3010; J7030; Q9967; J7070

== ENCOUNTER → 2022-05-31 | Outpatient (CLI) | payer MEDICARE ==
[~2022-05-31] MED LIST changes: -B&O 60MG R/S 60 MG SUPP PR ONE; -CEFTRIAXONE 1 GM VIAL ONE; -DEXAMETHASONE SOD PHOS INJ 4 MG/ML SDV ONE; -DEXTROSE 5% 250ML 0 ML IV ONE; -FENTANYL CITRATE/PF 100MCG/2 ML INJ ONE; -GENTAMICIN 80MG/NS 100 ML 200 ML IV ONE; -IOPAMIDOL 610MG/1ML 300 MG/ML VIAL IV ONE; -LIDOCAINE HCL 2% LOCAL INJ 5 ML SDV VIAL INJ ONE; -MIDAZOLAM HCL 2 MG/2 ML VIAL ONE; -ONDANSETRON HCL INJ 2MG/ML 2ML 2 MG/ML VIAL ONE; -POVIDONE IODINE 0.05% 0.05 % ML PO ONE; -PROPOFOL IV EMULSION 10 MG/ML 20 ML VIAL ONE; -SEVOFLURANE INHAL SOLN 250 ML PEN BTL ONE; -SODIUM CHLORIDE 0.9% 1000ML 1,000 ML ONE
== END ==
LOC: RAD 11:32
PROVIDERS: ATTEND Urology
DX: N20.0 Calculus of kidney (principal)
CPT/HCPCS: 74018

== ENCOUNTER → 2022-07-09 | Day surgery (SDC) | payer MEDICARE ==
[2022-07-07 11:10] LABS: BASOPHILS % 0.5 % (0.0-1.0); EOSINOPHILS # (AUTO) 0.1 (0.0-0.4); EOSINOPHILS % 2.2 % (0.0-6.0); HEMATOCRIT 40.3 % (34.2-44.1); HEMOGLOBIN 12.5 g/dL (12.0-16.0); LYMPHOCYTES # (AUTO) 0.8 (1.0-3.2); LYMPHOCYTES % 19.8 % (18.0-39.1); MEAN CORPUSCULAR HEMOGLOBIN 28.3 pg (28-32); MEAN CORPUSCULAR VOLUME 91.2 fL (81-99); MONOCYTES # (AUTO) 0.4 (0.2-0.8); MONOCYTES % 8.4 % (4.4-11.3); NEUTROPHILS # (AUTO) 2.9 (2.1-6.9); NEUTROPHILS % 68.9 % (38.7-80.0); PLATELET COUNT 108 x10e3/uL (140-360); RED BLOOD COUNT 4.42 x10e6/uL (3.6-5.1); RED CELL DISTRIBUTION WIDTH 14.9 % (11.7-14.4)
[2022-07-07 11:27] LABS: INR 0.94; PROTHROMBIN TIME 13.4 seconds (11.9-14.5)
[2022-07-07 11:30] LABS: ALBUMIN 3.1 g/dL (3.5-5.0); ALBUMIN/GLOBULIN RATIO 0.6 (0.8-2.0); ANION GAP 18.1 mmol/L (8-16); CALCIUM 9.6 mg/dL (8.4-10.2); CREATININE, SERUM 0.92 mg/dL (0.57-1.11); POTASSIUM 4.1 mmol/L (3.5-5.1)
[~2022-07-09] MED LIST changes: +ASPIRIN EC81 MG PO; +CEFTRIAXONE 1 GM VIAL ONE; +DEXAMETHASONE SOD PHOS INJ 4 MG/ML SDV ONE; +FENTANYL CITRATE/PF 100MCG/2 ML INJ ONE; +GLYCOPYRROLATE INJ 0.2 MG/ML VIAL ONE; +LIDOCAINE HCL 2% LOCAL INJ 5 ML SDV VIAL INJ ONE; +MIDAZOLAM HCL 2 MG/2 ML VIAL ONE; +ONDANSETRON HCL INJ 2MG/ML 2ML 2 MG/ML VIAL ONE; +POVIDONE IODINE 0.05% 0.05 % ML PO ONE; +PROPOFOL IV EMULSION 10 MG/ML 20 ML VIAL ONE; +SEVOFLURANE INHAL SOLN 250 ML PEN BTL ONE
[2022-07-09 10:55] VITALS: BP 138/82
== END | disposition home or self-care (01) ==
LOC: OR 06:58
PROVIDERS: ATTEND Urology
DX: N20.0 Calculus of kidney (principal); K76.0 Fatty (change of) liver, not elsewhere classified; G62.9 Polyneuropathy, unspecified; E11.9 Type 2 diabetes mellitus without complications; K21.9 Gastro-esophageal reflux disease without esophagitis; I10 Essential (primary) hypertension; Z01.810 Encounter for preprocedural cardiovascular examination; Z01.812 Encounter for preprocedural laboratory examination; Z01.818 Encounter for other preprocedural examination; Z79.82 Long term (current) use of aspirin; Z79.84 Long term (current) use of oral hypoglycemic drugs; Z79.899 Other long term (current) drug therapy
CPT/HCPCS: 36415 ×2; 50590; 71046; 74018; 80053; 82948; 84550; 85025; 85610; 85730; 93005; J0696; J1100; J2001; J2250; J2405; J2704; J3010

== ENCOUNTER 2022-08-28 16:46 | Inpatient (IN) | payer MEDICARE ==
[~2022-08-28] VITALS: Ht 157.5 cm; Wt 75.3 kg
[~2022-08-28 16:46] MED LIST changes: -CEFTRIAXONE 1 GM VIAL ONE; -DEXAMETHASONE SOD PHOS INJ 4 MG/ML SDV ONE; -FENTANYL CITRATE/PF 100MCG/2 ML INJ ONE; -GLYCOPYRROLATE INJ 0.2 MG/ML VIAL ONE; -LIDOCAINE HCL 2% LOCAL INJ 5 ML SDV VIAL INJ ONE; -MIDAZOLAM HCL 2 MG/2 ML VIAL ONE; -ONDANSETRON HCL INJ 2MG/ML 2ML 2 MG/ML VIAL ONE; -POVIDONE IODINE 0.05% 0.05 % ML PO ONE; -PROPOFOL IV EMULSION 10 MG/ML 20 ML VIAL ONE; -SEVOFLURANE INHAL SOLN 250 ML PEN BTL ONE
[2022-08-28] MEDS ORDERED: OCTREOTIDE ACETATE 0.05 MG/ML AMP IV STA (17:26)
[2022-08-28] MEDS ORDERED: ONDANSETRON HCL INJ 2MG/ML 2ML 2 MG/ML VIAL IV STA (17:26)
[2022-08-28] MEDS ORDERED: OCTREOTIDE ACETATE 600 MCG in SODIUM CHLORIDE 0.9% 250ML 300 ML IV SCH (17:30)
[2022-08-28 17:52] LABS: BASOPHILS % 0.6 % (0.0-1.0); EOSINOPHILS # (AUTO) 0.2 (0.0-0.4); EOSINOPHILS % 2.3 % (0.0-6.0); HEMATOCRIT 36.1 % (34.2-44.1); HEMOGLOBIN 10.9 g/dL (12.0-16.0); LYMPHOCYTES # (AUTO) 1.2 (1.0-3.2); LYMPHOCYTES % 16.9 % (18.0-39.1); MEAN CORPUSCULAR HEMOGLOBIN 28.7 pg (28-32); MEAN CORPUSCULAR HGB CONC 30.2 g/dL (31-35); MONOCYTES # (AUTO) 0.5 (0.2-0.8); MONOCYTES % 7.6 % (4.4-11.3); NEUTROPHILS % 72.3 % (38.7-80.0); PLATELET COUNT 140 x10e3/uL (140-360); RED CELL DISTRIBUTION WIDTH 14.6 % (11.7-14.4)
[2022-08-28 18:08] LABS: INR 1.11; PARTIAL THROMBOPLASTIN TIME 31.8 seconds (23.8-35.5); PROTHROMBIN TIME 14.5 seconds (11.9-14.5)
[2022-08-28 18:18] LABS: ALBUMIN 2.9 g/dL (3.5-5.0); ALBUMIN/GLOBULIN RATIO 0.7 (0.8-2.0); ANION GAP 20.3 mmol/L (8-16); CALCIUM 9.5 mg/dL (8.4-10.2); CREATININE, SERUM 0.86 mg/dL (0.57-1.11); MAGNESIUM 1.2 MG/DL (1.3-2.1); POTASSIUM 4.3 mmol/L (3.5-5.1)
[2022-08-28 18:24] LABS: CREATINE KINASE MB 2.5 ng/mL (0-5.0)
[2022-08-28] MEDS ORDERED: SODIUM CHLORIDE 0.9% 250ML 250 ML ONE (18:59)
[2022-08-28] MEDS ORDERED: OCTREOTIDE ACETATE 2 ML ONE (19:02)
[2022-08-28] MEDS ORDERED: SODIUM CHLORIDE 0.9% 1000ML 1,000 ML IV SCH (19:15)
[2022-08-28] MEDS ORDERED: MAGNESIUM SULFATE 2GM/50ML 50 ML IV ONE (19:15)
[2022-08-28] MEDS ORDERED: PHYTONADIONE 10 MG/ML AMP SC ONE (19:15)
[2022-08-28] MEDS ORDERED: DEXTROSE 50% SYRINGE 50 ML IV PRN (19:15)
[2022-08-28] MEDS: INSULIN LISPRO 100 UNIT/1 ML 3ML VIAL SQ SCH (21:10)
[2022-08-28] MEDS ORDERED: PHYTONADIONE 10MG/ML 1 ML ONE (21:45)
[2022-08-28 22:52] VITALS: BP 135/63
[2022-08-28 23:01] VITALS: BP 132/61
[2022-08-28 23:26] VITALS: BP 135/63
[2022-08-29] VITALS (8 sets, daily range): BP systolic 129–149; BP diastolic 60–64
[2022-08-29] MEDS: INSULIN LISPRO 100 UNIT/1 ML 3ML VIAL SQ SCH ×4 (00:30→17:21)
[2022-08-29] MEDS ORDERED: PROPRANOLOL HCL 80 MG CAPCR PO SCH (00:40)
[2022-08-29 00:46] LABS: BASOPHILS % 0.4 % (0.0-1.0); EOSINOPHILS % 0.5 % (0.0-6.0); HEMATOCRIT 30.8 % (34.2-44.1); HEMOGLOBIN 9.5 g/dL (12.0-16.0); LYMPHOCYTES # (AUTO) 1.2 (1.0-3.2); LYMPHOCYTES % 20.7 % (18.0-39.1); MEAN CORPUSCULAR HEMOGLOBIN 28.9 pg (28-32); MEAN CORPUSCULAR HGB CONC 30.8 g/dL (31-35); MEAN CORPUSCULAR VOLUME 93.6 fL (81-99); MONOCYTES # (AUTO) 0.3 (0.2-0.8); MONOCYTES % 4.7 % (4.4-11.3); NEUTROPHILS # (AUTO) 4.1 (2.1-6.9); NEUTROPHILS % 73.5 % (38.7-80.0); PLATELET COUNT 120 x10e3/uL (140-360); RED BLOOD COUNT 3.29 x10e6/uL (3.6-5.1); RED CELL DISTRIBUTION WIDTH 14.3 % (11.7-14.4)
[2022-08-29] MEDS ORDERED: PROPRANOLOL HCL 40 MG TAB PO SCH (01:15)
[2022-08-29] MEDS: PROPRANOLOL HCL 40 MG TAB PO SCH ×3 (02:07→17:20)
[2022-08-29] MEDS ORDERED: ONDANSETRON HCL INJ 2MG/ML 2ML 2 MG/ML VIAL IV PRN (06:30)
[2022-08-29 06:46] LABS: BASOPHILS % 0.1 % (0.0-1.0); EOSINOPHILS # (AUTO) 0.1 (0.0-0.4); EOSINOPHILS % 0.9 % (0.0-6.0); HEMATOCRIT 30.5 % (34.2-44.1); HEMOGLOBIN 9.6 g/dL (12.0-16.0); LYMPHOCYTES # (AUTO) 1.5 (1.0-3.2); LYMPHOCYTES % 21.9 % (18.0-39.1); MEAN CORPUSCULAR HEMOGLOBIN 29.1 pg (28-32); MEAN CORPUSCULAR HGB CONC 31.5 g/dL (31-35); MEAN CORPUSCULAR VOLUME 92.4 fL (81-99); MONOCYTES # (AUTO) 0.7 (0.2-0.8); MONOCYTES % 9.7 % (4.4-11.3); NEUTROPHILS # (AUTO) 4.5 (2.1-6.9); PLATELET COUNT 138 x10e3/uL (140-360); RED CELL DISTRIBUTION WIDTH 14.4 % (11.7-14.4)
[2022-08-29 07:41] LABS: ALBUMIN 2.9 g/dL (3.5-5.0); ALBUMIN/GLOBULIN RATIO 0.7 (0.8-2.0); ANION GAP 15.5 mmol/L (8-16); CREATININE, SERUM 0.81 mg/dL (0.57-1.11); POTASSIUM 4.5 mmol/L (3.5-5.1)
[2022-08-29] MEDS ORDERED: OCTREOTIDE ACETATE IV SCH (10:00)
[2022-08-29] MEDS ORDERED: SODIUM CHLORIDE 0.9% IV SCH (10:00)
[2022-08-29] MEDS: OCTREOTIDE ACETATE 500 MCG in SODIUM CHLORIDE 0.9% 250ML 249 ML IV SCH ×2 (10:37→20:58)
[2022-08-29 10:40] LABS: INR 1.16
[2022-08-29 10:51] LABS: BASOPHILS % 0.2 % (0.0-1.0); EOSINOPHILS % 0.2 % (0.0-6.0); HEMATOCRIT 29.5 % (34.2-44.1); HEMOGLOBIN 8.9 g/dL (12.0-16.0); LYMPHOCYTES % 19.2 % (18.0-39.1); MEAN CORPUSCULAR HEMOGLOBIN 28.4 pg (28-32); MEAN CORPUSCULAR HGB CONC 30.2 g/dL (31-35); MEAN CORPUSCULAR VOLUME 94.2 fL (81-99); MONOCYTES # (AUTO) 0.2 (0.2-0.8); MONOCYTES % 4.1 % (4.4-11.3); NEUTROPHILS # (AUTO) 4.1 (2.1-6.9); NEUTROPHILS % 76.1 % (38.7-80.0); PLATELET COUNT 131 x10e3/uL (140-360); RED BLOOD COUNT 3.13 x10e6/uL (3.6-5.1); RED CELL DISTRIBUTION WIDTH 14.9 % (11.7-14.4)
[2022-08-29] MEDS ORDERED: SODIUM CHLORIDE 0.9% 250ML 250 ML ONE (14:22)
[2022-08-29 18:13] LABS: BASOPHILS % 0.4 % (0.0-1.0); EOSINOPHILS % 0.5 % (0.0-6.0); HEMATOCRIT 26.9 % (34.2-44.1); HEMOGLOBIN 8.2 g/dL (12.0-16.0); LYMPHOCYTES # (AUTO) 1.4 (1.0-3.2); MEAN CORPUSCULAR HEMOGLOBIN 28.7 pg (28-32); MEAN CORPUSCULAR HGB CONC 30.5 g/dL (31-35); MEAN CORPUSCULAR VOLUME 94.1 fL (81-99); MONOCYTES # (AUTO) 0.5 (0.2-0.8); MONOCYTES % 9.4 % (4.4-11.3); NEUTROPHILS # (AUTO) 3.7 (2.1-6.9); NEUTROPHILS % 65.2 % (38.7-80.0); PLATELET COUNT 149 x10e3/uL (140-360); RED BLOOD COUNT 2.86 x10e6/uL (3.6-5.1); RED CELL DISTRIBUTION WIDTH 14.9 % (11.7-14.4)
[2022-08-30] VITALS (7 sets, daily range): BP systolic 128–157; BP diastolic 63–69
[2022-08-30 00:24] LABS: BASOPHILS % 0.4 % (0.0-1.0); EOSINOPHILS # (AUTO) 0.1 (0.0-0.4); EOSINOPHILS % 1.1 % (0.0-6.0); HEMATOCRIT 25.3 % (34.2-44.1); HEMOGLOBIN 7.8 g/dL (12.0-16.0); LYMPHOCYTES # (AUTO) 1.3 (1.0-3.2); LYMPHOCYTES % 24.3 % (18.0-39.1); MEAN CORPUSCULAR HEMOGLOBIN 28.7 pg (28-32); MEAN CORPUSCULAR HGB CONC 30.8 g/dL (31-35); MONOCYTES # (AUTO) 0.6 (0.2-0.8); MONOCYTES % 10.2 % (4.4-11.3); NEUTROPHILS # (AUTO) 3.4 (2.1-6.9); NEUTROPHILS % 63.6 % (38.7-80.0); PLATELET COUNT 154 x10e3/uL (140-360); RED BLOOD COUNT 2.72 x10e6/uL (3.6-5.1)
[2022-08-30] MEDS ORDERED: OCTREOTIDE ACETATE 500 MCG in SODIUM CHLORIDE 0.9% 250ML 249 ML IV SCH (04:00)
[2022-08-30 05:43] LABS: BASOPHILS % 0.6 % (0.0-1.0); EOSINOPHILS # (AUTO) 0.1 (0.0-0.4); EOSINOPHILS % 1.6 % (0.0-6.0); HEMATOCRIT 24.7 % (34.2-44.1); LYMPHOCYTES # (AUTO) 1.1 (1.0-3.2); LYMPHOCYTES % 21.8 % (18.0-39.1); MEAN CORPUSCULAR HEMOGLOBIN 28.7 pg (28-32); MEAN CORPUSCULAR HGB CONC 30.4 g/dL (31-35); MEAN CORPUSCULAR VOLUME 94.6 fL (81-99); MONOCYTES # (AUTO) 0.5 (0.2-0.8); MONOCYTES % 9.2 % (4.4-11.3); NEUTROPHILS # (AUTO) 3.3 (2.1-6.9); NEUTROPHILS % 66.6 % (38.7-80.0); RED BLOOD COUNT 2.61 x10e6/uL (3.6-5.1)
[2022-08-30 06:04] LABS: HEMOGLOBIN 7.6 g/dL (12.0-16.0)
[2022-08-30 06:05] LABS: PLATELET COUNT 141 x10e3/uL (140-360)
[2022-08-30 06:35] LABS: ALBUMIN 2.8 g/dL (3.5-5.0); ALBUMIN/GLOBULIN RATIO 0.8 (0.8-2.0); ANION GAP 15.7 mmol/L (8-16); CALCIUM 8.5 mg/dL (8.4-10.2); CREATININE, SERUM 0.85 mg/dL (0.57-1.11); MAGNESIUM 1.4 MG/DL (1.3-2.1); POTASSIUM 3.7 mmol/L (3.5-5.1)
[2022-08-30] MEDS: INSULIN LISPRO 100 UNIT/1 ML 3ML VIAL SQ SCH ×5 (06:59→21:35)
[2022-08-30] MEDS ORDERED: DESMOPRESSIN ACETATE 4 MCG/ML VIAL IV ONE (07:30)
[2022-08-30] MEDS: PROPRANOLOL HCL 40 MG TAB PO SCH ×2 (08:24→17:42)
[2022-08-30] MEDS ORDERED: SODIUM CHLORIDE 0.9% 250ML 250 ML ONE (08:47)
[2022-08-30 12:22] LABS: BASOPHILS % 0.3 % (0.0-1.0); EOSINOPHILS # (AUTO) 0.1 (0.0-0.4); EOSINOPHILS % 1.5 % (0.0-6.0); HEMATOCRIT 25.3 % (34.2-44.1); HEMOGLOBIN 7.6 g/dL (12.0-16.0); LYMPHOCYTES # (AUTO) 1.1 (1.0-3.2); MEAN CORPUSCULAR HEMOGLOBIN 28.8 pg (28-32); MEAN CORPUSCULAR VOLUME 95.8 fL (81-99); MONOCYTES # (AUTO) 0.6 (0.2-0.8); MONOCYTES % 9.2 % (4.4-11.3); NEUTROPHILS # (AUTO) 4.2 (2.1-6.9); NEUTROPHILS % 70.8 % (38.7-80.0); PLATELET COUNT 155 x10e3/uL (140-360); RED BLOOD COUNT 2.64 x10e6/uL (3.6-5.1); RED CELL DISTRIBUTION WIDTH 15.4 % (11.7-14.4)
[2022-08-30] MEDS: FERROUS SULFATE 325 MG TAB PO SCH (12:54)
[2022-08-30] MEDS ORDERED: PROPOFOL IV EMULSION 10 MG/ML 20 ML VIAL ONE (14:01)
[2022-08-30] MEDS ORDERED: LIDOCAINE HCL 2% LOCAL INJ 5 ML SDV VIAL INJ ONE (14:01)
[2022-08-30] MEDS ORDERED: FERROUS SULFATE 325 MG TAB PO SCH (17:00)
[2022-08-30] MEDS ORDERED: PROPRANOLOL HCL 40 MG TAB PO SCH (17:00)
[2022-08-30] MEDS: METFORMIN HCL 850 MG TAB PO SCH (17:42)
[2022-08-30] MEDS ORDERED: ATORVASTATIN 20 MG TAB PO SCH (21:00)
[2022-08-31] VITALS: BP 143/58
[2022-08-31 04:00] VITALS: BP 125/49
[2022-08-31] MEDS: INSULIN LISPRO 100 UNIT/1 ML 3ML VIAL SQ SCH ×2 (04:54→12:00)
[2022-08-31 05:02] LABS: BASOPHILS % 0.5 % (0.0-1.0); EOSINOPHILS # (AUTO) 0.1 (0.0-0.4); EOSINOPHILS % 2.3 % (0.0-6.0); HEMATOCRIT 23.3 % (34.2-44.1); HEMOGLOBIN 7.2 g/dL (12.0-16.0); LYMPHOCYTES # (AUTO) 1.3 (1.0-3.2); LYMPHOCYTES % 23.3 % (18.0-39.1); MEAN CORPUSCULAR HEMOGLOBIN 28.8 pg (28-32); MEAN CORPUSCULAR HGB CONC 30.9 g/dL (31-35); MEAN CORPUSCULAR VOLUME 93.2 fL (81-99); MONOCYTES # (AUTO) 0.6 (0.2-0.8); MONOCYTES % 10.2 % (4.4-11.3); NEUTROPHILS # (AUTO) 3.5 (2.1-6.9); NEUTROPHILS % 63.3 % (38.7-80.0); PLATELET COUNT 144 x10e3/uL (140-360); RED CELL DISTRIBUTION WIDTH 15.4 % (11.7-14.4)
[2022-08-31 05:12] LABS: INR 1.08; PROTHROMBIN TIME 14.2 seconds (11.9-14.5)
[2022-08-31 05:21] LABS: ALBUMIN 2.6 g/dL (3.5-5.0); ALBUMIN/GLOBULIN RATIO 0.7 (0.8-2.0); ANION GAP 12.6 mmol/L (8-16); CALCIUM 8.3 mg/dL (8.4-10.2); CREATININE, SERUM 0.82 mg/dL (0.57-1.11); POTASSIUM 3.6 mmol/L (3.5-5.1)
[2022-08-31] MEDS ORDERED: PANTOPRAZOLE SOD 40 MG TABEC PO SCH (07:30)
[2022-08-31] MEDS ORDERED: SODIUM CHLORIDE 0.9% 250ML 250 ML IV ONE (07:45)
[2022-08-31 08:43] VITALS: BP 148/62
[2022-08-31 08:53] VITALS: BP 148/62
[2022-08-31] MEDS ORDERED: AMLODIPINE BESYLATE 10 MG TAB PO SCH (09:00)
[2022-08-31] MEDS ORDERED: OLMESARTAN 20 MG TAB PO SCH (09:00)
[2022-08-31] MEDS ORDERED: FUROSEMIDE 40 MG TAB PO SCH (09:00)
[2022-08-31] MEDS ORDERED: FLUOXETINE HCL 20 MG CAP PO SCH (09:00)
[2022-08-31] MEDS ORDERED: OLMESARTAN MEDOXOMIL 5 MG TABLET PO SCH (09:00)
[2022-08-31] MEDS: METFORMIN HCL 850 MG TAB PO SCH ×2 (09:59→12:00)
[2022-08-31] MEDS: FERROUS SULFATE 325 MG TAB PO SCH (10:00)
[2022-08-31] MEDS: PROPRANOLOL HCL 40 MG TAB PO SCH (10:00)
[2022-08-31] MEDS ORDERED: FUROSEMIDE INJ 10 MG/ML 2 ML VIAL IV ONE (10:15)
[2022-08-31] MEDS ORDERED: SODIUM CHLORIDE 0.9% 250ML 250 ML ONE (11:31)
[2022-08-31 12:12] VITALS: BP 138/55
[2022-08-31] MEDS ORDERED: FUROSEMIDE INJ 10 MG/ML 2 ML VIAL IV PRN (13:45)
[2022-08-31 16:02] LABS: BASOPHILS % 0.3 % (0.0-1.0); EOSINOPHILS # (AUTO) 0.1 (0.0-0.4); EOSINOPHILS % 1.5 % (0.0-6.0); HEMOGLOBIN 8.7 g/dL (12.0-16.0); LYMPHOCYTES # (AUTO) 1.4 (1.0-3.2); LYMPHOCYTES % 20.3 % (18.0-39.1); MEAN CORPUSCULAR HEMOGLOBIN 29.2 pg (28-32); MEAN CORPUSCULAR HGB CONC 31.1 g/dL (31-35); MONOCYTES # (AUTO) 0.6 (0.2-0.8); MONOCYTES % 8.3 % (4.4-11.3); NEUTROPHILS # (AUTO) 4.6 (2.1-6.9); PLATELET COUNT 138 x10e3/uL (140-360); RED BLOOD COUNT 2.98 x10e6/uL (3.6-5.1); RED CELL DISTRIBUTION WIDTH 15.2 % (11.7-14.4)
[2022-08-31] MEDS ORDERED: POTASSIUM CITR10 MEQ PO (16:21)
[2022-08-31 16:53] VITALS: BP 135/63
== END 2022-08-31 16:59 | disposition home or self-care (01) | DRG 441 ==
LOC: ER 17:21 → ERHOLD 19:12 → MED/SURG 21:54 → MED/SURG3 08-29 05:19
PROVIDERS: ADMIT Internal Medicine; ATTEND Internal Medicine
PROC: 30233R1 Transfusion of Nonautologous Platelets into Peripheral Vein, Percutaneous Approach (ICD-10-PCS; 2022-08-29)
PROC: 06L38CZ Occlusion of Esophageal Vein with Extraluminal Device, Via Natural or Artificial Opening Endoscopic (ICD-10-PCS; principal; 2022-08-30 09:00)
PROC: 30233N1 Transfusion of Nonautologous Red Blood Cells into Peripheral Vein, Percutaneous Approach (ICD-10-PCS; 2022-08-31)
DX: K76.6 Portal hypertension (principal); I85.11 Secondary esophageal varices with bleeding; D61.818 Other pancytopenia; D62 Acute posthemorrhagic anemia; I50.32 Chronic diastolic (congestive) heart failure; I13.0 Hypertensive heart and chronic kidney disease with heart failure and stage 1 through stage 4 chronic kidney disease, or unspecified chronic kidney disease; K74.69 Other cirrhosis of liver; J44.9 Chronic obstructive pulmonary disease, unspecified; E11.22 Type 2 diabetes mellitus with diabetic chronic kidney disease; K76.0 Fatty (change of) liver, not elsewhere classified; N18.1 Chronic kidney disease, stage 1; K31.89 Other diseases of stomach and duodenum; I86.4 Gastric varices; K44.9 Diaphragmatic hernia without obstruction or gangrene; E11.42 Type 2 diabetes mellitus with diabetic polyneuropathy; R80.9 Proteinuria, unspecified; E66.9 Obesity, unspecified; Z68.30 Body mass index [BMI] 30.0-30.9, adult; Z90.49 Acquired absence of other specified parts of digestive tract; Z90.710 Acquired absence of both cervix and uterus; Z98.84 Bariatric surgery status; Z79.82 Long term (current) use of aspirin; Z79.84 Long term (current) use of oral hypoglycemic drugs; Z79.899 Other long term (current) drug therapy; Z95.2 Presence of prosthetic heart valve; Z86.79 Personal history of other diseases of the circulatory system; Z20.822 Contact with and (suspected) exposure to COVID-19
CPT/HCPCS: 36415; 43255; 71045; 80053; 82270; 82550; 82553; 82948; 83690; 83735; 84484; 85025; 85610; 85730; 86850; 86870; 86880; 86900; 86905; 86920; 86922; 93005; 96361; 96366; 99001; 99284; J1940; J2001; J2353; J2354; J2405; J3430; J3475; J7030; J7050; P9016; P9034

== ENCOUNTER 2022-09-15 02:44 | Inpatient (IN) | payer MEDICARE ==
[~2022-09-15] VITALS: Ht 157.5 cm; Wt 75.3 kg
[2022-09-15] VITALS (7 sets, daily range): BP systolic 121–142; BP diastolic 60–79
[~2022-09-15 02:44] MED LIST changes: +POTASSIUM CITR10 MEQ PO
[2022-09-15 03:10] LABS: BASOPHILS % 0.3 % (0.0-1.0); EOSINOPHILS # (AUTO) 0.1 (0.0-0.4); EOSINOPHILS % 1.4 % (0.0-6.0); HEMATOCRIT 26.1 % (34.2-44.1); HEMOGLOBIN 7.5 g/dL (12.0-16.0); LYMPHOCYTES # (AUTO) 1.1 (1.0-3.2); MEAN CORPUSCULAR HGB CONC 28.7 g/dL (31-35); MEAN CORPUSCULAR VOLUME 90.6 fL (81-99); MONOCYTES # (AUTO) 0.4 (0.2-0.8); MONOCYTES % 5.7 % (4.4-11.3); NEUTROPHILS # (AUTO) 5.3 (2.1-6.9); NEUTROPHILS % 76.3 % (38.7-80.0); PLATELET COUNT 195 x10e3/uL (140-360); RED BLOOD COUNT 2.88 x10e6/uL (3.6-5.1); RED CELL DISTRIBUTION WIDTH 15.2 % (11.7-14.4)
[2022-09-15] MEDS ORDERED: SODIUM CHLORIDE 0.9% 1000ML 1,000 ML IV STA (03:23)
[2022-09-15 03:28] LABS: ALBUMIN 3.3 g/dL (3.5-5.0); ALBUMIN/GLOBULIN RATIO 0.7 (0.8-2.0); ANION GAP 18.4 mmol/L (8-16); CALCIUM 9.4 mg/dL (8.4-10.2); CREATININE, SERUM 0.87 mg/dL (0.57-1.11); POTASSIUM 4.4 mmol/L (3.5-5.1)
[2022-09-15 03:34] LABS: CREATINE KINASE MB 1.5 ng/mL (0-5.0)
[2022-09-15] MEDS ORDERED: IOPAMIDOL 370 MG/ML 100 ML INFUS..BTL INJ ONE (03:57)
[2022-09-15] MEDS ORDERED: FUROSEMIDE INJ 10 MG/ML 2 ML VIAL IV PRN ×3 (06:00→11:15)
[2022-09-15] MEDS ORDERED: SODIUM CHLORIDE 0.9% 250ML 250 ML IV ONE (06:00)
[2022-09-15] MEDS ORDERED: FUROSEMIDE INJ 10 MG/ML 2 ML VIAL IV ONE (06:15)
[2022-09-15] MEDS ORDERED: IRON PO (08:04)
[2022-09-15] MEDS ORDERED: DEXTROSE 50% SYRINGE 50 ML IV PRN (10:15)
[2022-09-15] MEDS ORDERED: AMLODIPINE BESYLATE 10 MG TAB PO SCH (11:00)
[2022-09-15] MEDS ORDERED: FUROSEMIDE INJ 10 MG/ML 4 ML VIAL IV PRN (11:15)
[2022-09-15] MEDS: OLMESARTAN 20 MG TAB PO SCH (11:20)
[2022-09-15] MEDS: AMLODIPINE BESYLATE 10 MG TAB PO SCH (11:24)
[2022-09-15] MEDS: INSULIN LISPRO 100 UNIT/1 ML 3ML VIAL SQ SCH ×3 (11:47→21:02)
[2022-09-15 11:53] LABS: CREATINE KINASE MB 1.1 ng/mL (0-5.0)
[2022-09-15] MEDS ORDERED: FUROSEMIDE INJ 10 MG/ML 4 ML VIAL IV SCH ×2 (14:00→20:00)
[2022-09-15] MEDS: FLUOXETINE HCL 20 MG CAP PO SCH ×2 (14:29→21:02)
[2022-09-15] MEDS: PROPRANOLOL HCL 80 MG CAPCR PO SCH (16:47)
[2022-09-15] MEDS: POTASSIUM CITRATE ER 10 MEQ TAB PO SCH ×2 (16:47→21:02)
[2022-09-15] MEDS ORDERED: SODIUM CHLORIDE 0.9% 250ML 250 ML ONE ×2 (16:49→20:09)
[2022-09-15] MEDS ORDERED: TEMAZEPAM 15 MG CAP PO PRN (21:00)
[2022-09-15] MEDS: ATORVASTATIN 10 MG TAB PO SCH (21:02)
[2022-09-15] MEDS: BISACODYL 5 MG TAB EC PO SCH (21:02)
[2022-09-15 22:55] LABS: CREATINE KINASE MB 0.9 ng/mL (0-5.0)
[2022-09-16] VITALS (8 sets, daily range): BP systolic 116–147; BP diastolic 54–77
[2022-09-16] MEDS: FUROSEMIDE INJ 10 MG/ML 4 ML VIAL IV SCH ×3 (03:32→14:02)
[2022-09-16 05:13] LABS: BASOPHILS % 0.4 % (0.0-1.0); EOSINOPHILS # (AUTO) 0.1 (0.0-0.4); EOSINOPHILS % 1.6 % (0.0-6.0); HEMATOCRIT 22.8 % (34.2-44.1); HEMOGLOBIN 7.2 g/dL (12.0-16.0); LYMPHOCYTES # (AUTO) 0.9 (1.0-3.2); LYMPHOCYTES % 15.6 % (18.0-39.1); MEAN CORPUSCULAR HEMOGLOBIN 27.1 pg (28-32); MEAN CORPUSCULAR HGB CONC 31.6 g/dL (31-35); MEAN CORPUSCULAR VOLUME 85.7 fL (81-99); MONOCYTES # (AUTO) 0.5 (0.2-0.8); MONOCYTES % 9.8 % (4.4-11.3); NEUTROPHILS % 72.2 % (38.7-80.0); PLATELET COUNT 131 x10e3/uL (140-360); RED BLOOD COUNT 2.66 x10e6/uL (3.6-5.1); RED CELL DISTRIBUTION WIDTH 15.1 % (11.7-14.4)
[2022-09-16 05:45] LABS: ALBUMIN 2.8 g/dL (3.5-5.0); ALBUMIN/GLOBULIN RATIO 0.7 (0.8-2.0); ANION GAP 16.4 mmol/L (8-16); CALCIUM 8.6 mg/dL (8.4-10.2); CREATININE, SERUM 0.89 mg/dL (0.57-1.11); POTASSIUM 3.4 mmol/L (3.5-5.1)
[2022-09-16] MEDS: INSULIN LISPRO 100 UNIT/1 ML 3ML VIAL SQ SCH ×4 (07:30→20:51)
[2022-09-16] MEDS ORDERED: SODIUM CHLORIDE 0.9% 250ML 250 ML IV ONE (07:45)
[2022-09-16 08:25] LABS: INR 1.09; PROTHROMBIN TIME 14.3 seconds (11.9-14.5)
[2022-09-16] MEDS ORDERED: POTASSIUM CHLORIDE 10MEQ EA PO ONE (08:30)
[2022-09-16] MEDS: PROPRANOLOL HCL 80 MG CAPCR PO SCH ×2 (08:31→16:36)
[2022-09-16] MEDS: AMLODIPINE BESYLATE 10 MG TAB PO SCH (08:31)
[2022-09-16] MEDS: FERROUS SULFATE 325 MG TAB PO SCH (08:32)
[2022-09-16] MEDS: CHOLECALCIFEROL 1,000 UNIT TAB PO SCH (08:32)
[2022-09-16] MEDS: CYANOCOBALAMIN 1,000 MCG TAB PO SCH (08:32)
[2022-09-16] MEDS: PANTOPRAZOLE SOD 40 MG TABEC PO SCH (08:32)
[2022-09-16] MEDS: OLMESARTAN 20 MG TAB PO SCH (08:32)
[2022-09-16] MEDS: POTASSIUM CITRATE ER 10 MEQ TAB PO SCH ×3 (08:32→20:44)
[2022-09-16] MEDS: FLUOXETINE HCL 20 MG CAP PO SCH ×3 (08:32→20:44)
[2022-09-16] MEDS ORDERED: SODIUM CHLORIDE 0.9% 250ML 250 ML ONE (15:28)
[2022-09-16] MEDS ORDERED: FUROSEMIDE INJ 10 MG/ML 4 ML VIAL IV ONE (17:00)
[2022-09-16] MEDS: ATORVASTATIN 10 MG TAB PO SCH (20:44)
[2022-09-16] MEDS: BISACODYL 5 MG TAB EC PO SCH (20:46)
[2022-09-17] VITALS: BP 131/65
[2022-09-17 03:19] VITALS: BP 130/67
[2022-09-17] MEDS: FUROSEMIDE INJ 10 MG/ML 4 ML VIAL IV SCH ×2 (03:24→10:06)
[2022-09-17 05:05] LABS: BASOPHILS % 0.6 % (0.0-1.0); EOSINOPHILS # (AUTO) 0.1 (0.0-0.4); EOSINOPHILS % 2.6 % (0.0-6.0); HEMATOCRIT 25.9 % (34.2-44.1); HEMOGLOBIN 8.4 g/dL (12.0-16.0); LYMPHOCYTES % 20.1 % (18.0-39.1); MEAN CORPUSCULAR HGB CONC 32.4 g/dL (31-35); MEAN CORPUSCULAR VOLUME 83.3 fL (81-99); MONOCYTES # (AUTO) 0.5 (0.2-0.8); MONOCYTES % 10.8 % (4.4-11.3); NEUTROPHILS # (AUTO) 3.3 (2.1-6.9); NEUTROPHILS % 65.5 % (38.7-80.0); PLATELET COUNT 107 x10e3/uL (140-360); RED BLOOD COUNT 3.11 x10e6/uL (3.6-5.1); RED CELL DISTRIBUTION WIDTH 15.3 % (11.7-14.4)
[2022-09-17 05:31] LABS: ALBUMIN 2.8 g/dL (3.5-5.0); ALBUMIN/GLOBULIN RATIO 0.7 (0.8-2.0); ANION GAP 15.5 mmol/L (8-16); CALCIUM 8.5 mg/dL (8.4-10.2); CREATININE, SERUM 0.99 mg/dL (0.57-1.11); POTASSIUM 3.5 mmol/L (3.5-5.1)
[2022-09-17] MEDS ORDERED: POTASSIUM CHLORIDE 10MEQ EA PO ONE (08:30)
[2022-09-17 08:37] VITALS: BP 133/59
[2022-09-17 08:55] VITALS: BP 133/59
[2022-09-17] MEDS: FERROUS SULFATE 325 MG TAB PO SCH (09:54)
[2022-09-17] MEDS: CYANOCOBALAMIN 1,000 MCG TAB PO SCH (09:54)
[2022-09-17] MEDS: PANTOPRAZOLE SOD 40 MG TABEC PO SCH (09:54)
[2022-09-17] MEDS: FLUOXETINE HCL 20 MG CAP PO SCH (09:54)
[2022-09-17] MEDS: AMLODIPINE BESYLATE 10 MG TAB PO SCH (09:54)
[2022-09-17] MEDS: OLMESARTAN 20 MG TAB PO SCH (09:54)
[2022-09-17] MEDS: PROPRANOLOL HCL 80 MG CAPCR PO SCH (09:55)
[2022-09-17] MEDS: POTASSIUM CITRATE ER 10 MEQ TAB PO SCH (09:56)
[2022-09-17] MEDS: CHOLECALCIFEROL 1,000 UNIT TAB PO SCH (10:05)
[2022-09-17] MEDS: INSULIN LISPRO 100 UNIT/1 ML 3ML VIAL SQ SCH (10:11)
[2022-09-17] MEDS ORDERED: LEVOFLOXACIN250 MG PO (11:13)
== END 2022-09-17 11:36 | disposition home or self-care (01) | DRG 291 ==
LOC: ER 02:50 → ERHOLD 05:45 → MED/SURG 07:45
PROVIDERS: ADMIT Internal Medicine; ATTEND Internal Medicine
DX: I13.0 Hypertensive heart and chronic kidney disease with heart failure and stage 1 through stage 4 chronic kidney disease, or unspecified chronic kidney disease (principal); I50.33 Acute on chronic diastolic (congestive) heart failure; J18.9 Pneumonia, unspecified organism; E87.20 Acidosis, unspecified; K76.6 Portal hypertension; D61.818 Other pancytopenia; N18.1 Chronic kidney disease, stage 1; E11.22 Type 2 diabetes mellitus with diabetic chronic kidney disease; Z79.84 Long term (current) use of oral hypoglycemic drugs; K31.89 Other diseases of stomach and duodenum; I86.4 Gastric varices; K76.0 Fatty (change of) liver, not elsewhere classified; E11.40 Type 2 diabetes mellitus with diabetic neuropathy, unspecified; E66.09 Other obesity due to excess calories; Z68.30 Body mass index [BMI] 30.0-30.9, adult; Z20.822 Contact with and (suspected) exposure to COVID-19; T38.3X5A Adverse effect of insulin and oral hypoglycemic [antidiabetic] drugs, initial encounter; Z79.01 Long term (current) use of anticoagulants; Z95.2 Presence of prosthetic heart valve; D50.0 Iron deficiency anemia secondary to blood loss (chronic)
CPT/HCPCS: 36415; 71045; 71260; 80053; 82550; 82553; 82948; 83605; 83880; 84484; 85025; 85610; 86850; 86870; 86880; 86900; 86905; 86920; 86922; 87040; 93005; 93306; 94799; 96372; 99001; 99284; J1940; J2543; J7030; J7050; P9016; Q9967

== ENCOUNTER → 2023-01-12 | Outpatient (CLI) | payer MEDICARE ==
[~2023-01-12] MED LIST changes: +IRON PO
== END ==
LOC: RAD 10:51
PROVIDERS: ATTEND Urology
DX: N20.0 Calculus of kidney (principal)
CPT/HCPCS: 74018

== ENCOUNTER → 2023-07-22 | Day surgery (SDC) | payer MEDICARE ==
[2023-07-21 13:09] LABS: BASOPHILS % 0.7 % (0.0-1.0); EOSINOPHILS # (AUTO) 0.1 (0.0-0.4); EOSINOPHILS % 2.6 % (0.0-6.0); HEMATOCRIT 39.9 % (34.2-44.1); LYMPHOCYTES # (AUTO) 0.8 (1.0-3.2); LYMPHOCYTES % 19.3 % (18.0-39.1); MEAN CORPUSCULAR HEMOGLOBIN 29.5 pg (28-32); MEAN CORPUSCULAR HGB CONC 32.6 g/dL (31-35); MEAN CORPUSCULAR VOLUME 90.5 fL (81-99); MONOCYTES # (AUTO) 0.4 (0.2-0.8); MONOCYTES % 8.7 % (4.4-11.3); NEUTROPHILS # (AUTO) 2.9 (2.1-6.9); NEUTROPHILS % 68.5 % (38.7-80.0); PLATELET COUNT 113 x10e3/uL (140-360); RED BLOOD COUNT 4.41 x10e6/uL (3.6-5.1); RED CELL DISTRIBUTION WIDTH 13.3 % (11.7-14.4); WHITE BLOOD COUNT 4.25 x10e3/uL (4.8-10.8)
[2023-07-21 13:25] LABS: INR 1.06
[2023-07-21 13:26] LABS: PARTIAL THROMBOPLASTIN TIME 32.4 seconds (23.8-35.5)
[2023-07-21 13:40] LABS: ALBUMIN 3.3 g/dL (3.5-5.0); ALBUMIN/GLOBULIN RATIO 0.7 (0.8-2.0); ANION GAP 12.9 mmol/L (8-16); BILIRUBIN,TOTAL 1.5 mg/dL (0.2-1.2); CALCIUM 9.4 mg/dL (8.4-10.2); CREATININE, SERUM 1.1 mg/dL (0.57-1.11); POTASSIUM 3.9 mmol/L (3.5-5.1); TOTAL PROTEIN 8.1 g/dL (6.5-8.1)
[~2023-07-22] MED LIST changes: +CEFTRIAXONE 1 GM VIAL ONE; +CONSTULOSE10 GM/15 M PO; +DEXAMETHASONE SOD PHOS INJ 4 MG/ML SDV ONE; +EPHEDRINE SULFATE INJ 50 MG/ML VIAL ONE; +IOPAMIDOL 610MG/1ML 300 MG/ML VIAL IV ONE; +LACTATED RINGER'S 1,000 ML ONE; +LIDOCAINE HCL 2% LOCAL INJ 5 ML SDV VIAL INJ ONE; +MAGNESIUM CITR125 MG PO; +ONDANSETRON HCL INJ 2MG/ML 2ML 2 MG/ML VIAL ONE; +PHENAZOPYRIDINE HCL 100 MG TAB ONE; +PROPOFOL IV EMULSION 10 MG/ML 20 ML VIAL ONE; +SEVOFLURANE INHAL SOLN 250 ML PEN BTL ONE; +TRESIBA FL100 UNIT/1 SC
[2023-07-22 08:14] LABS: CALCIUM 9.5 mg/dL (8.7-10.3)
[2023-07-22 10:27] VITALS: TEMP 97.7
[2023-07-22 11:10] VITALS: BP 146/63; PULSE 64; RESP 16; O2SAT 97
== END | disposition home or self-care (01) ==
LOC: OR 06:58
PROVIDERS: ATTEND Urology
DX: N20.0 Calculus of kidney (principal); N39.0 Urinary tract infection, site not specified; R31.0 Gross hematuria; R31.29 Other microscopic hematuria; N81.10 Cystocele, unspecified; N81.6 Rectocele; N36.41 Hypermobility of urethra; N95.2 Postmenopausal atrophic vaginitis; N28.89 Other specified disorders of kidney and ureter; I13.0 Hypertensive heart and chronic kidney disease with heart failure and stage 1 through stage 4 chronic kidney disease, or unspecified chronic kidney disease; I50.9 Heart failure, unspecified; N18.1 Chronic kidney disease, stage 1; E11.22 Type 2 diabetes mellitus with diabetic chronic kidney disease; Z79.4 Long term (current) use of insulin; F32.A Depression, unspecified; Z95.2 Presence of prosthetic heart valve; Z01.812 Encounter for preprocedural laboratory examination; Z01.818 Encounter for other preprocedural examination
CPT/HCPCS: 36415 ×2; 50590; 52005; 74018; 80053; 82948; 83970; 84550; 85025; 85610; 85730; 87086; C1758; J0696; J1100; J2001; J2405; J2704; J7121; Q9967